=== PATIENT | male | born 1970 | race Caucasian/White ===

== ENCOUNTER 2024-05-22 07:54 | Outpatient (RCR) | payer BC, SELFPAY | END 2024-06-16 09:00 | disposition home or self-care (01) | LOC: PT 07:54 | PROVIDERS: Visit Provider Physician Assistant | DX: I21.9 Acute myocardial infarction, unspecified (principal); I50.20 Unspecified systolic (congestive) heart failure; Z95.1 Presence of aortocoronary bypass graft ==

== ENCOUNTER 2025-06-04 14:56 | Outpatient (CLI) | payer OTHER, SELFPAY ==
--- OUTSIDE RECORDS SUMMARY | 2025-06-04 14:58 | XMS_ITS ---
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
--- OUTSIDE RECORDS SUMMARY | 2025-06-04 14:59 | XMS_ITS | Data Portability ---
Author Organization [facility] Address [address] [place] [address] Assessment Encounter Date Assessment Date Assessment LastModified by Organization Details LastModified Time 04/26/2025 04/26/2025 The patient was advised to continue a healthy diet and exercise regularly. Labs will be sent to evaluate blood count, renal function lipids and vitamin D. Not available 04/26/2025 10:15:08 Plan of Treatment Reminders Order Date Submit Date Provider Last Modified By Organization Details Last Modified Time Details Appointments Follow Up 2024 03:20P M Lashaun Stokes APRN Not available Not available Not available Lab PSA, serum or plasma 2024 025 [facility], [address], [address], [place], [address], 04/27/2025 08:19:36 vitamin D, 25-hydrox y, total, serum 2024 025 [facility], [address], [address], [place], [address], 04/27/2025 08:19:38 CMP, serum or plasma 2024 025 [facility], [address], [address], [place], [address], 04/27/2025 08:19:34 HbA1c (hemoglob in A1c), blood 2024 025 [facility], [address], [address], [place], [address], 04/27/2025 08:19:37 TSH + free T4, serum 2024 025 ABEL Scott, [address], [address], [place], [address], 04/27/2025 08:19:33 cobalamin and folate panel, serum 2024 025 ABELMARGARET Scott, [address], [address], [place], [address], 04/27/2025 08:19:36 CBC w/ auto diff 2024 025 ABELMARGARET Scott, [address], [address], [place], [address], 04/27/2025 08:19:33 lipid panel, serum 2024 025 ABEL Scott, [address], [address], [place], [address], 04/27/2025 08:19:35 noninvasi ve colorecta l cancer DNA + occult blood screening , QL, stool 2024 025 [email or web address] (Cologuard Orders Only), [address], [address], [place], [address], 05/17/2025 07:14:50 vitamin D, 25-hydrox y, total, serum 2024 025 [facility], [address], [address], [place], [address], 01/12/2025 08:26:20 HbA1c (hemoglob in A1c), blood 2024 025 [facility], [address], [address], [place], [address], 01/12/2025 08:26:19 CMP, serum or plasma 2024 025 [facility], [address], [address], [place], [address], 01/12/2025 08:26:17 lipid panel, serum 2024 025 AB[facility], [address], [address], [place], [address], 01/12/2025 08:26:17 CBC w/ auto diff 2024 025 [facility], [address], [address], [place], [address], 01/12/2025 08:26:16 TSH + free T4, serum 2024 025 [place] [facility], [address], [address], [place], [address], 01/12/2025 08:26:15 iron + total iron-bind ing capacity (TIBC), serum 2024 025 [place] [facility], [address], [address], [place], [address], 01/12/2025 08:26:18 ferritin, serum or plasma 2024 025 [place] [facility], [address], [address], [place], [address], 01/12/2025 08:26:21 vitamin D, 25-hydrox y, total, serum 2023 024 [email or web address] [facility]( Lab), [address] [place] [address] [place], [address], 11/22/2024 09:16:36 HbA1c (hemoglob in A1c), blood 2023 024 [email or web address] [facility]( Lab), [address] [place] [address] [place], [address], 11/22/2024 09:15:39 CMP, serum or plasma 2023 024 [email or web address] [facility]( Lab), [address] [place] [address] Tatiana Hilliard, [place], [address], 11/22/2024 09:15:55 iron + total iron-bind ing capacity (TIBC), serum 2023 024 [email or web address] [facility]( [facility]), [address] [place] [address] Tatiana Hilliard, [place], [address], 11/22/2024 09:16:06 ferritin, serum or plasma 2023 024 [email or web address] [facility]( Lab), [address] [place] [address] Tatiana Hilliard, [place], [address], 11/22/2024 09:16:20 CBC w/ auto diff 2023 024 [facility]( Lab), [address] [place] [address] Tatinaa Hilliard, [place], [address], 10/02/2024 02:52:21 vitamin B12 + folate, serum or blood 2023 024 [email or web address] [facility]( Lab), [address] [place] [address] Tatiana Hilliard, [place], [address], 11/22/2024 09:16:28 HbA1c (hemoglob in A1c), blood 2023 024 [facility], [address], [address], [place], [address], 05/20/2024 08:36:28 iron + total iron-bind ing capacity (TIBC), serum 2023 024 [facility], [address], [address], [place], [address], 05/20/2024 08:36:26 ferritin, serum or plasma 2023 024 [facility], [address], [address], [place], [address], 05/20/2024 08:36:28 vitamin B12 + folate, serum or blood 2023 024 [facility], [address], [address], [place], [address], 05/20/2024 08:36:27 retic count, blood 2023 024 [facility], [address], [address], [place], [address], 05/20/2024 08:36:29 CBC w/ auto diff 2023 024 [facility], [address], [address], [place], [address], 05/20/2024 08:36:25 Referral rheumatol ogist referral 2023 024 [email or web address] [facility], [address] [place] [address] Pino Escalante, [address], [place], [address], 06/19/2024 16:50:37 Procedures None recorded. Surgeries None recorded. Imaging None recorded. Medication Orders cholecalc iferol (vitamin D3) 1,250 mcg (50,000 unit) capsule 2023 [email or web address], [address], 05/23/2025 18:03:05 FeroSul 325 mg (65 mg iron) tablet [address], [address], 05/19/2024 15:11:20 Patient TargetsNo targets recorded. Patient Instructions Encounter Date Encounter Id Patient Instructions Last Modified By Organization Details Last Modified Time 05/19/2024 [id number] learning about healthy weight alabenson Not available 05/19/2024 14:57:23 body mass index: care instructions Not available 05/19/2024 14:57:23 09/15/2024 [id number] learning about healthy weight Not available 09/15/2024 16:19:36 body mass index: care instructions Not available 09/15/2024 16:19:36 04/26/2025 [id number] [facility]'s Guide to Preventive Health Care Not available 04/26/2025 10:12:13 eating healthy foods: care instructions Not available 04/26/2025 10:12:13 learning about healthy weight Not available 04/26/2025 10:20:42 body mass index: care instructions Not available 04/26/2025 10:20:42 walking for exercise: care instructions Not available 04/26/2025 10:12:13 Reason for Referral Psychotherapist Referral for Rheumatoid factor detected Referring Physician: Lashaun Stokes, Family Medicine, Encounter Date: 05/19/2024 Results Created Date Observation Date Name Description Value Unit Range Abnormal Flag Note LastModifiedBy Organization Detail LastModifiedTime 05/12/20 24 05/13/2024 TSH+F REE T4 TSH 1.450 uIU/m L 0.450- 4.500 Not Available [facility] ([facility]) [address] [place], [address], 05/15/2024 13:08:28 05/12/20 24 05/13/2024 TSH+F REE T4 T4,free(dire ct) 1.14 NG/dL 0.82-1 .77 Not Available [facility] ([facility]) [address] [place], [address], 05/15/2024 13:08:28 05/12/20 24 05/13/2024 CBC WITH DIFFE RENTI AL/PL ATELE T WBC 7.2 x10e3 /uL 3.4-10 .8 Not Available [facility] ([facility]) [address] [place], [address], 05/15/2024 13:08:29 05/12/20 24 05/13/2024 CBC WITH DIFFE RENTI AL/PL ATELE T RBC 4.59 x10e6 /uL 4.14-5 .80 Not Available [facility] ([facility]) [address] [place], [address], 05/15/2024 13:08:29 05/12/20 24 05/13/2024 CBC WITH DIFFE RENTI AL/PL ATELE T hemoglobin 10.6 g/dL 13.0-1 7.7 below low normal Not Available [facility] ([facility]) [address] [place], [address], 05/15/2024 13:08:29 05/12/20 24 05/13/2024 CBC WITH DIFFE RENTI AL/PL ATELE T hematocrit 34.8 % 37.5-5 1.0 below low normal Not Available [facility] ([facility]) [address] [place], [address], 05/15/2024 13:08:29 05/12/20 24 05/13/2024 CBC WITH DIFFE RENTI AL/PL ATELE T MCV 76 fL 79-97 below low normal Not Available [facility] ([facility]) [address] [place], [address], 05/15/2024 13:08:29 05/12/20 24 05/13/2024 CBC WITH DIFFE RENTI AL/PL ATELE T MCH 23.1 pg 26.6-3 3.0 below low normal Not Available [facility] ([facility]) [address] [place], [address], 05/15/2024 13:08:29 05/12/20 24 05/13/2024 CBC WITH DIFFE RENTI AL/PL ATELE T MCHC 30.5 g/dL 31.5-3 5.7 below low normal Not Available [facility] ([facility]) [address] [place], [address], 05/15/2024 13:08:29 05/12/20 24 05/13/2024 CBC WITH DIFFE RENTI AL/PL ATELE T RDW 15.7 % 11.6-1 5.4 above high normal Not Available [facility] ([facility]) [address] [facility], [place], [address], 05/15/2024 13:08:29 05/12/20 24 05/13/2024 CBC WITH DIFFE RENTI AL/PL ATELE T platelets 273 x10e3 /uL 150-45 0 Not Available [facility] ([facility]) [address] [facility], [place], [address], 05/15/2024 13:08:29 05/12/20 24 05/13/2024 CBC WITH DIFFE RENTI AL/PL ATELE T neutrophils 73 % not estab. Not Available [facility] ([facility]) [address] [facility], [place], [address], 05/15/2024 13:08:29 05/12/20 24 05/13/2024 CBC WITH DIFFE RENTI AL/PL ATELE T lymphs 10 % not estab. Not Available [facility] ([facility]) [address] [facility], [place], [address], 05/15/2024 13:08:29 05/12/20 24 05/13/2024 CBC WITH DIFFE RENTI AL/PL ATELE T monocytes 10 % not estab. Not Available [facility] ([facility]) [address] [facility], [place], [address], 05/15/2024 13:08:29 05/12/20 24 05/13/2024 CBC WITH DIFFE RENTI AL/PL ATELE T eos 5 % not estab. Not Available [facility] ([facility]) [address] [facility], [place], [address], 05/15/2024 13:08:29 05/12/20 24 05/13/2024 CBC WITH DIFFE RENTI AL/PL ATELE T basos 1 % not estab. Not Available [facility] ([facility]) [address] [place], [address], 05/15/2024 13:08:29 05/12/20 24 05/13/2024 CBC WITH DIFFE RENTI AL/PL ATELE T immature cells CHART READER Not Available [facility] ([facility]) [address] [place], [address], 05/15/2024 13:08:29 05/12/20 24 05/13/2024 CBC WITH DIFFE RENTI AL/PL ATELE T neutrophils (absolute) 5.3 x10e3 /uL 1.4-7. 0 Not Available [facility] ([facility]) [address] [place], [address], 05/15/2024 13:08:29 05/12/20 24 05/13/2024 CBC WITH DIFFE RENTI AL/PL ATELE T lymphs (absolute) 0.7 x10e3 /uL 0.7-3. 1 Not Available [facility] ([facility]) [address] [place], [address], 05/15/2024 13:08:29 05/12/20 24 05/13/2024 CBC WITH DIFFE RENTI AL/PL ATELE T monocytes(ab solute) 0.7 x10e3 /uL 0.1-0. 9 Not Available [facility] ([facility]) [address] [place], [address], 05/15/2024 13:08:29 05/12/20 24 05/13/2024 CBC WITH DIFFE RENTI AL/PL ATELE T eos (absolute) 0.4 x10e3 /uL 0.0-0. 4 Not Available [facility] ([facility]) [address] [place], [address], 05/15/2024 13:08:29 05/12/20 24 05/13/2024 CBC WITH DIFFE RENTI AL/PL ATELE T baso (absolute) 0.1 x10e3 /uL 0.0-0. 2 Not Available [facility] ([facility]) [address] [facility], [place], [address], 05/15/2024 13:08:29 05/12/20 24 05/13/2024 CBC WITH DIFFE RENTI AL/PL ATELE T immature granulocytes 1 % not estab. Not Available [facility] ([facility]) [address] [facility], [place], [address], 05/15/2024 13:08:29 05/12/20 24 05/13/2024 CBC WITH DIFFE RENTI AL/PL ATELE T immature grans (abs) 0.1 x10e3 /uL 0.0-0. 1 Not Available [facility] ([facility]) [address] [facility], [place], [address], 05/15/2024 13:08:29 05/12/20 24 05/13/2024 CBC WITH DIFFE RENTI AL/PL ATELE T NRBC CHART READER Not Available [facility] ([facility]) [address] [facility], [place], [address], 05/15/2024 13:08:29 05/12/20 24 05/13/2024 CBC WITH DIFFE RENTI AL/PL ATELE T hematology comments: CHART READER Not Available [facility] ([facility]) [address] [facility], [place], [address], 05/15/2024 13:08:29 05/12/20 24 05/13/2024 COMP. METAB OLIC PANEL (14) glucose 111 mg/dL 70-99 above high normal Not Available [facility] ([facility]) [address] [facility], [place], [address], 05/15/2024 13:08:30 05/12/20 24 05/13/2024 COMP. METAB OLIC PANEL (14) BUN 23 mg/dL 6-24 Not Available [facility] ([facility]) [address] [facility] [place], [address], 05/15/2024 13:08:30 05/12/20 24 05/13/2024 COMP. METAB OLIC PANEL (14) creatinine 1.02 mg/dL 0.76-1 .27 Not Available [facility] ([facility]) [address] [facility] [place], [address], 05/15/2024 13:08:30 05/12/20 24 05/13/2024 COMP. METAB OLIC PANEL (14) eGFR 87 mL/mi n/1.7 3 >59 Not Available [facility] ([facility]) [address] [facility], [place], [address], 05/15/2024 13:08:30 05/12/20 24 05/13/2024 COMP. METAB OLIC PANEL (14) BUN/creatini ne ratio 23 9-20 above high normal Not Available [facility] ([facility]) [address] [facility] [place], [address], 05/15/2024 13:08:30 05/12/20 24 05/13/2024 COMP. METAB OLIC PANEL (14) sodium 137 mmol/ L 134-14 4 Not Available [facility] ([facility]) [address] [facility] [place], [address], 05/15/2024 13:08:30 05/12/20 24 05/13/2024 COMP. METAB OLIC PANEL (14) potassium 4.3 mmol/ L 3.5-5. 2 Not Available [facility] ([facility]) [address] [facility] [place], [address], 05/15/2024 13:08:30 05/12/20 24 05/13/2024 COMP. METAB OLIC PANEL (14) chloride 102 mmol/ L 96-106 Not Available [facility] ([facility]) [address] [facility], [place], [address], 05/15/2024 13:08:30 05/12/20 24 05/13/2024 COMP. METAB OLIC PANEL (14) carbon dioxide, total 21 mmol/ L 20-29 Not Available [facility] ([facility]) [address] [facility], [place], [address], 05/15/2024 13:08:30 05/12/20 24 05/13/2024 COMP. METAB OLIC PANEL (14) calcium 9.5 mg/dL 8.7-10 .2 Not Available [facility] ([facility]) [address] [facility] [place] [facility] [place], [address], 05/15/2024 13:08:30 05/12/20 24 05/13/2024 COMP. METAB OLIC PANEL (14) protein, total 7.0 g/dL 6.0-8. 5 Not Available [facility] ([facility]) [address] [facility], [place], [address], 05/15/2024 13:08:30 05/12/20 24 05/13/2024 COMP. METAB OLIC PANEL (14) albumin 3.9 g/dL 3.8-4. 9 Not Available [facility] ([facility]) [address] [facility] [place], [address], 05/15/2024 13:08:30 05/12/20 24 05/13/2024 COMP. METAB OLIC PANEL (14) globulin, total 3.1 g/dL 1.5-4. 5 Not Available [facility] ([facility]) [address] [facility] [place], [address], 05/15/2024 13:08:30 05/12/20 24 05/13/2024 COMP. METAB OLIC PANEL (14) bilirubin, total <0.2 mg/dL 0.0-1. 2 Not Available [facility] ([facility]) [address] [place], [address], 05/15/2024 13:08:30 05/12/20 24 05/13/2024 COMP. METAB OLIC PANEL (14) alkaline phosphatase 153 IU/L 44-121 above high normal Not Available [facility] ([facility]) [address] [facility], [place], [address], 05/15/2024 13:08:30 05/12/20 24 05/13/2024 COMP. METAB OLIC PANEL (14) AST (SGOT) 20 IU/L 0-40 Not Available [facility] ([facility]) [address] [facility] [place], [address], 05/15/2024 13:08:30 05/12/20 24 05/13/2024 COMP. METAB OLIC PANEL (14) ALT (SGPT) 24 IU/L 0-44 Not Available [facility] ([facility]) [address] [place], [address], 05/15/2024 13:08:30 05/12/20 24 05/13/2024 LIPID PANEL cholesterol, total 121 mg/dL 100-19 9 Not Available [facility] ([facility]) [address] [place], [address], 05/15/2024 13:08:30 05/12/20 24 05/13/2024 LIPID PANEL triglyceride s 137 mg/dL 0-149 Not Available [facility] ([facility]) [address] [place], [address], 05/15/2024 13:08:30 05/12/20 24 05/13/2024 LIPID PANEL HDL cholesterol 34 mg/dL >39 below low normal Not Available [facility] ([facility]) [address] [place], [address], 05/15/2024 13:08:30 05/12/20 24 05/13/2024 LIPID PANEL VLDL cholesterol radha 24 mg/dL 5-40 Not Available [facility] ([facility]) [address] [facility], [place], [address], 05/15/2024 13:08:30 05/12/20 24 05/13/2024 LIPID PANEL LDL chol calc ([facility]) 63 mg/dL 0-99 Not Available [facility] ([facility]) [address] [facility], [place], [address], 05/15/2024 13:08:30 05/12/20 24 05/13/2024 LIPID PANEL LDL calc comment: CHART READER Not Available [facility] ([facility]) [address] [facility], [place], [address], 05/15/2024 13:08:30 05/12/20 24 05/13/2024 RHEUM ATOID FACTO R (RF) rheumatoid factor (rf) 275.2 IU/mL <14.0 above high normal Resul ts confi rmed on dilut ion. Not Available [facility] ([facility]) [address] [facility], [place], [address], 05/15/2024 13:08:31 05/12/20 24 05/13/2024 VITAM IN D, 25-HY DROXY vitamin D, 25-hydroxy 29.5 NG/mL 30.0-1 00.0 below low normal Vitam in D defic iency has been defin ed by the Insti tute of Medic ine and an Endoc rine Socie ty pract ice guide line as a level of serum 25-OH vitam in D less than 20 ng/mL (1,2) . The Endoc rine Socie ty went on to furth er defin e vitam in D insuf ficie ncy as a level betwe en 21 and 29 ng/mL (2). 1. IOM (Inst itute of Medic ine). 2010. Dieta ry refer ence intak es for calci um and D. Jose gillette [place]: [facility] . 2. Theodora dimas [place], Sania zimmerman [place], [place] off-F errar i FARAH, et al. Evalu ation , treat ment, and preve ntion of vitam in D defic iency : an Endoc rine Socie ty clini radha pract ice guide line. JCEM. 2010; 96(7) :1911 -30. Not Available [facility] ([facility]) [address] [facility], [place], [address], 05/15/2024 13:08:32 05/12/20 24 05/15/2024 ANTIN UCLEA R AB MULTI PLEX RFX 9 YOSELIN direct Negati ve negati ve Not Available [facility] ([facility]) [address] [facility], [place], [address], 05/15/2024 13:08:33 05/12/20 24 05/13/2024 SEDIM ENTAT ION RATE- WESTE RGREN sedimentatio n rate-westerg codey 53 mm/HR 0-30 above high normal Not Available [facility] ([facility]) [address] [facility], [place], [address], 05/15/2024 13:08:33 05/12/20 24 05/13/2024 C-MAT CTIVE PROTE IN, QUANT C-reactive protein, quant 40 mg/L 0-10 above high normal Not Available [facility] ([facility]) [address] [facility], [place], [address], 05/15/2024 13:08:34 05/19/20 24 05/20/2024 CBC WITH DIFFE RENTI AL/PL ATELE T WBC 11.0 x10e3 /uL 3.4-10 .8 above high normal Not Available [facility] ([facility]) [address] [facility] [place], [address], 05/20/2024 08:36:25 05/19/20 24 05/20/2024 CBC WITH DIFFE RENTI AL/PL ATELE T RBC 5.33 x10e6 /uL 4.14-5 .80 Not Available [facility] ([facility]) [address] [place], [address], 05/20/2024 08:36:25 05/19/20 24 05/20/2024 CBC WITH DIFFE RENTI AL/PL ATELE T hemoglobin 12.4 g/dL 13.0-1 7.7 below low normal Not Available [facility] ([facility]) [address] [place], [address], 05/20/2024 08:36:25 05/19/20 24 05/20/2024 CBC WITH DIFFE RENTI AL/PL ATELE T hematocrit 41.1 % 37.5-5 1.0 Not Available [facility] ([facility]) [address] [place], [address], 05/20/2024 08:36:25 05/19/20 24 05/20/2024 CBC WITH DIFFE RENTI AL/PL ATELE T MCV 77 fL 79-97 below low normal Not Available [facility] ([facility]) [address] [place], [address], 05/20/2024 08:36:25 05/19/20 24 05/20/2024 CBC WITH DIFFE RENTI AL/PL ATELE T MCH 23.3 pg 26.6-3 3.0 below low normal Not Available [facility] ([facility]) [address] [place], [address], 05/20/2024 08:36:25 05/19/20 24 05/20/2024 CBC WITH DIFFE RENTI AL/PL ATELE T MCHC 30.2 g/dL 31.5-3 5.7 below low normal Not Available [facility] ([facility]) [address] [place], [address], 05/20/2024 08:36:25 05/19/20 24 05/20/2024 CBC WITH DIFFE RENTI AL/PL ATELE T RDW 16.2 % 11.6-1 5.4 above high normal Not Available [facility] ([facility]) [address] [facility], [place], [address], 05/20/2024 08:36:25 05/19/20 24 05/20/2024 CBC WITH DIFFE RENTI AL/PL ATELE T platelets 300 x10e3 /uL 150-45 0 Not Available [facility] ([facility]) [address] [facility], [place], [address], 05/20/2024 08:36:25 05/19/20 24 05/20/2024 CBC WITH DIFFE RENTI AL/PL ATELE T neutrophils 79 % not estab. Not Available [facility] ([facility]) [address] [facility], [place], [address], 05/20/2024 08:36:25 05/19/20 24 05/20/2024 CBC WITH DIFFE RENTI AL/PL ATELE T lymphs 9 % not estab. Not Available [facility] ([facility]) [address] [facility], [place], [address], 05/20/2024 08:36:25 05/19/20 24 05/20/2024 CBC WITH DIFFE RENTI AL/PL ATELE T monocytes 6 % not estab. Not Available [facility] ([facility]) [address] [facility], [place], [address], 05/20/2024 08:36:25 05/19/20 24 05/20/2024 CBC WITH DIFFE RENTI AL/PL ATELE T eos 4 % not estab. Not Available [facility] ([facility]) [address] [facility], [place], [address], 05/20/2024 08:36:25 05/19/20 24 05/20/2024 CBC WITH DIFFE RENTI AL/PL ATELE T basos 1 % not estab. Not Available [facility] ([facility]) [address] [facility], [place], [address], 05/20/2024 08:36:25 05/19/20 24 05/20/2024 CBC WITH DIFFE RENTI AL/PL ATELE T immature cells CHART READER Not Available [facility] ([facility]) [address] [place], [address], 05/20/2024 08:36:25 05/19/20 24 05/20/2024 CBC WITH DIFFE RENTI AL/PL ATELE T neutrophils (absolute) 8.7 x10e3 /uL 1.4-7. 0 above high normal Not Available [facility] ([facility]) [address] [place], [address], 05/20/2024 08:36:25 05/19/20 24 05/20/2024 CBC WITH DIFFE RENTI AL/PL ATELE T lymphs (absolute) 1.0 x10e3 /uL 0.7-3. 1 Not Available [facility] ([facility]) [address] [place], [address], 05/20/2024 08:36:25 05/19/20 24 05/20/2024 CBC WITH DIFFE RENTI AL/PL ATELE T monocytes(ab solute) 0.6 x10e3 /uL 0.1-0. 9 Not Available [facility] ([facility]) [address] [place], [address], 05/20/2024 08:36:25 05/19/20 24 05/20/2024 CBC WITH DIFFE RENTI AL/PL ATELE T eos (absolute) 0.4 x10e3 /uL 0.0-0. 4 Not Available [facility] ([facility]) [address] [place], [address], 05/20/2024 08:36:25 05/19/20 24 05/20/2024 CBC WITH DIFFE RENTI AL/PL ATELE T baso (absolute) 0.1 x10e3 /uL 0.0-0. 2 Not Available [facility] ([facility]) [address] [place], [address], 05/20/2024 08:36:25 05/19/20 24 05/20/2024 CBC WITH DIFFE RENTI AL/PL ATELE T immature granulocytes 1 % not estab. Not Available [facility] ([facility]) [address] [facility] [place], [address], 05/20/2024 08:36:25 05/19/20 24 05/20/2024 CBC WITH DIFFE RENTI AL/PL ATELE T immature grans (abs) 0.1 x10e3 /uL 0.0-0. 1 Not Available [facility] ([facility]) [address] [facility], [place], [address], 05/20/2024 08:36:25 05/19/20 24 05/20/2024 CBC WITH DIFFE RENTI AL/PL ATELE T NRBC CHART READER Not Available [facility] ([facility]) [address] [facility], [place], [address], 05/20/2024 08:36:25 05/19/20 24 05/20/2024 CBC WITH DIFFE RENTI AL/PL ATELE T hematology comments: CHART READER Not Available [facility] ([facility]) [address] [facility], [place], [address], 05/20/2024 08:36:25 05/19/20 24 05/20/2024 IRON AND TIBC iron bind.cap.(TI BC) 241 ug/dL 250-45 0 below low normal Not Available [facility] ([facility]) [address] [place], [address], 05/20/2024 08:36:26 05/19/20 24 05/20/2024 IRON AND TIBC UIBC 212 ug/dL 111-34 3 Not Available [facility] ([facility]) [address] [place], [address], 05/20/2024 08:36:26 05/19/20 24 05/20/2024 IRON AND TIBC iron 29 ug/dL 38-169 below low normal Not Available [facility] ([facility]) [address] [place], [address], 05/20/2024 08:36:26 05/19/20 24 05/20/2024 IRON AND TIBC iron saturation 12 % 15-55 below low normal Not Available [facility] ([facility]) [address] [place], [address], 05/20/2024 08:36:26 05/19/20 24 05/20/2024 VITAM IN B12 AND FOLAT E vitamin B12 501 pg/mL 232-12 45 Not Available [facility] ([facility]) [address] [place], [address], 05/20/2024 08:36:27 05/19/20 24 05/20/2024 VITAM IN B12 AND FOLAT E folate (folic acid), serum 4.9 NG/mL >3.0 A serum folat e jose ntrat ion of less than 3.1 ng/mL is consi dered to repre sent clini radha defic iency . Not Available [facility] ([facility]) [address] [place], [address], 05/20/2024 08:36:27 05/19/20 24 05/20/2024 HEMOG LOBIN A1C hemoglobin A1C 6.1 % 4.8-5. 6 above high normal Predi abete s: 5.7 - 6.4 Diabe kenyatta: >6.4 Glyce ranjith contr ol for adult s with diabe kenyatta: <7.0 Not Available [facility] ([facility]) [address] [place], [address], 05/20/2024 08:36:27 05/19/20 24 05/20/2024 CHELA TIN ferritin 377 NG/mL 30-400 Not Available [facility] ([facility]) [address] [place], [address], 05/20/2024 08:36:28 05/19/20 24 05/20/2024 RETIC ULOCY TE COUNT reticulocyte count 1.2 % 0.6-2. 6 Not Available [facility] ([facility]) [address] [facility], [place], [address], 05/20/2024 08:36:29 06/28/2006/29/2024 BASIC METAB OLIC PANEL (8) glucose 121 mg/dL 70-99 above high normal Not Available [facility] ([facility]) [address] [facility] [place], [address], 06/29/2024 04:11:04 06/28/20 24 06/29/2024 BASIC METAB OLIC PANEL (8) BUN 16 mg/dL 6-24 normal Not Available [facility] ([facility]) [address] [place], [address], 06/29/2024 04:11:04 06/28/20 24 06/29/2024 BASIC METAB OLIC PANEL (8) creatinine 1.31 mg/dL 0.76-1 .27 above high normal Not Available [facility] ([facility]) [address] [place], [address], 06/29/2024 04:11:04 06/28/2006/29/2024 BASIC METAB OLIC PANEL (8) eGFR 65 mL/mi n/1.7 3 >59 normal Not Available [facility] ([facility]) [address] [place], [address], 06/29/2024 04:11:04 06/28/2006/29/2024 BASIC METAB OLIC PANEL (8) BUN/creatini ne ratio 12 9-20 normal Not Available [facility] ([facility]) [address] [place], [address], 06/29/2024 04:11:04 06/28/20 24 06/29/2024 BASIC METAB OLIC PANEL (8) sodium 140 mmol/ L 134-14 4 normal Not Available [facility] ([facility]) [address] [place], [address], 06/29/2024 04:11:04 06/28/20 24 06/29/2024 BASIC METAB OLIC PANEL (8) potassium 4.1 mmol/ L 3.5-5. 2 normal Not Available [facility] ([facility]) [address] [place], [address], 06/29/2024 04:11:04 06/28/20 24 06/29/2024 BASIC METAB OLIC PANEL (8) chloride 106 mmol/ L 96-106 normal Not Available [facility] ([facility]) [address] [place], [address], 06/29/2024 04:11:04 06/28/20 24 06/29/2024 BASIC METAB OLIC PANEL (8) carbon dioxide, total 21 mmol/ L 20-29 normal Not Available [facility] ([facility]) [address] [place], [address], 06/29/2024 04:11:04 06/28/20 24 06/29/2024 BASIC METAB OLIC PANEL (8) calcium 9.3 mg/dL 8.7-10 .2 normal Not Available [facility] ([facility]) [address] [place], [address], 06/29/2024 04:11:04 01/12/20 25 01/12/2025 TSH+F REE T4 TSH 1.760 uIU/m L 0.450- 4.500 normal Not Available [facility] ([facility]) [address] [place], [address], 01/12/2025 08:26:15 01/12/20 25 01/12/2025 TSH+F REE T4 T4,free(dire ct) 1.11 NG/dL 0.82-1 .77 normal Not Available [facility] ([facility]) [address] [place], [address], 01/12/2025 08:26:15 01/12/20 25 01/12/2025 CBC WITH DIFFE RENTI AL/PL ATELE T WBC 7.3 x10e3 /uL 3.4-10 .8 normal Not Available [facility] ([facility]) [address] [place], [address], 01/12/2025 08:26:16 01/12/20 25 01/12/2025 CBC WITH DIFFE RENTI AL/PL ATELE T RBC 4.52 x10e6 /uL 4.14-5 .80 normal Not Available [facility] ([facility]) [address] [place], [address], 01/12/2025 08:26:16 01/12/20 25 01/12/2025 CBC WITH DIFFE RENTI AL/PL ATELE T hemoglobin 12.4 g/dL 13.0-1 7.7 below low normal Not Available [facility] ([facility]) [address] [place], [address], 01/12/2025 08:26:16 01/12/20 25 01/12/2025 CBC WITH DIFFE RENTI AL/PL ATELE T hematocrit 38.9 % 37.5-5 1.0 normal Not Available [facility] ([facility]) [address] [place], [address], 01/12/2025 08:26:16 01/12/20 25 01/12/2025 CBC WITH DIFFE RENTI AL/PL ATELE T MCV 86 fL 79-97 normal Not Available [facility] ([facility]) [address] [place], [address], 01/12/2025 08:26:16 01/12/20 25 01/12/2025 CBC WITH DIFFE RENTI AL/PL ATELE T MCH 27.4 pg 26.6-3 3.0 normal Not Available [facility] ([facility]) [address] [facility], [place], [address], 01/12/2025 08:26:16 01/12/20 25 01/12/2025 CBC WITH DIFFE RENTI AL/PL ATELE T MCHC 31.9 g/dL 31.5-3 5.7 normal Not Available [facility] ([facility]) [address] [facility], [place], [address], 01/12/2025 08:26:16 01/12/20 25 01/12/2025 CBC WITH DIFFE RENTI AL/PL ATELE T RDW 12.4 % 11.6-1 5.4 Not Available [facility] ([facility]) [address] [facility], [place], [address], 01/12/2025 08:26:16 01/12/20 25 01/12/2025 CBC WITH DIFFE RENTI AL/PL ATELE T platelets 214 x10e3 /uL 150-45 0 normal Not Available [facility] ([facility]) [address] [place], [address], 01/12/2025 08:26:16 01/12/20 25 01/12/2025 CBC WITH DIFFE RENTI AL/PL ATELE T neutrophils 79 % not estab. normal Not Available [facility] ([facility]) [address] [facility], [place], [address], 01/12/2025 08:26:16 01/12/20 25 01/12/2025 CBC WITH DIFFE RENTI AL/PL ATELE T lymphs 11 % not estab. normal Not Available [facility] ([facility]) [address] [place], [address], 01/12/2025 08:26:16 01/12/20 25 01/12/2025 CBC WITH DIFFE RENTI AL/PL ATELE T monocytes 8 % not estab. normal Not Available [facility] ([facility]) [address] [place], [address], 01/12/2025 08:26:16 01/12/20 25 01/12/2025 CBC WITH DIFFE RENTI AL/PL ATELE T eos 2 % not estab. normal Not Available [facility] ([facility]) [address] [facility], [place], [address], 01/12/2025 08:26:16 01/12/20 25 01/12/2025 CBC WITH DIFFE RENTI AL/PL ATELE T basos 0 % not estab. normal Not Available [facility] ([facility]) [address] [facility], [place], [address], 01/12/2025 08:26:16 01/12/20 25 01/12/2025 CBC WITH DIFFE RENTI AL/PL ATELE T immature cells CHART READER Not Available [facility] ([facility]) [address] [place], [address], 01/12/2025 08:26:16 01/12/20 25 01/12/2025 CBC WITH DIFFE RENTI AL/PL ATELE T neutrophils (absolute) 5.8 x10e3 /uL 1.4-7. 0 normal Not Available [facility] ([facility]) [address] [place], [address], 01/12/2025 08:26:16 01/12/20 25 01/12/2025 CBC WITH DIFFE RENTI AL/PL ATELE T lymphs (absolute) 0.8 x10e3 /uL 0.7-3. 1 normal Not Available [facility] ([facility]) [address] [place], [address], 01/12/2025 08:26:16 01/12/20 25 01/12/2025 CBC WITH DIFFE RENTI AL/PL ATELE T monocytes(ab solute) 0.6 x10e3 /uL 0.1-0. 9 normal Not Available [facility] ([facility]) [address] [facility], [place], [address], 01/12/2025 08:26:16 01/12/20 25 01/12/2025 CBC WITH DIFFE RENTI AL/PL ATELE T eos (absolute) 0.1 x10e3 /uL 0.0-0. 4 normal Not Available [facility] ([facility]) [address] [facility], [place], [address], 01/12/2025 08:26:16 01/12/20 25 01/12/2025 CBC WITH DIFFE RENTI AL/PL ATELE T baso (absolute) 0.0 x10e3 /uL 0.0-0. 2 normal Not Available [facility] ([facility]) [address] [facility], [place], [address], 01/12/2025 08:26:16 01/12/20 25 01/12/2025 CBC WITH DIFFE RENTI AL/PL ATELE T immature granulocytes 0 % not estab. Not Available [facility] ([facility]) [address] [facility], [place], [address], 01/12/2025 08:26:16 01/12/20 25 01/12/2025 CBC WITH DIFFE RENTI AL/PL ATELE T immature grans (abs) 0.0 x10e3 /uL 0.0-0. 1 Not Available [facility] ([facility]) [address] [place], [address], 01/12/2025 08:26:16 01/12/20 25 01/12/2025 CBC WITH DIFFE RENTI AL/PL ATELE T NRBC CHART READER Not Available [facility] ([facility]) [address] [facility], [place], [address], 01/12/2025 08:26:16 01/12/20 25 01/12/2025 CBC WITH DIFFE RENTI AL/PL ATELE T hematology comments: CHART READER Not Available [facility] ([facility]) [address] [facility] [place], [address], 01/12/2025 08:26:16 01/12/20 25 01/12/2025 COMP. METAB OLIC PANEL (14) glucose 141 mg/dL 70-99 above high normal Not Available [facility] ([facility]) [address] [facility] [place], [address], 01/12/2025 08:26:16 01/12/20 25 01/12/2025 COMP. METAB OLIC PANEL (14) BUN 16 mg/dL 6-24 normal Not Available [facility] ([facility]) [address] [facility] [place], [address], 01/12/2025 08:26:16 01/12/20 25 01/12/2025 COMP. METAB OLIC PANEL (14) creatinine 1.04 mg/dL 0.76-1 .27 normal Not Available [facility] ([facility]) [address] [facility] [place], [address], 01/12/2025 08:26:16 01/12/20 25 01/12/2025 COMP. METAB OLIC PANEL (14) eGFR 85 mL/mi n/1.7 3 >59 normal Not Available [facility] ([facility]) [address] [facility] [place], [address], 01/12/2025 08:26:16 01/12/20 25 01/12/2025 COMP. METAB OLIC PANEL (14) BUN/creatini ne ratio 15 9-20 normal Not Available [facility] ([facility]) [address] [facility] [place], [address], 01/12/2025 08:26:16 01/12/20 25 01/12/2025 COMP. METAB OLIC PANEL (14) sodium 141 mmol/ L 134-14 4 normal Not Available [facility] ([facility]) [address] [facility] [place], [address], 01/12/2025 08:26:16 01/12/20 25 01/12/2025 COMP. METAB OLIC PANEL (14) potassium 3.8 mmol/ L 3.5-5. 2 normal Not Available [facility] ([facility]) [address] [facility] [place], [address], 01/12/2025 08:26:16 01/12/20 25 01/12/2025 COMP. METAB OLIC PANEL (14) chloride 105 mmol/ L 96-106 normal Not Available [facility] ([facility]) [address] [place], [address], 01/12/2025 08:26:16 01/12/20 25 01/12/2025 COMP. METAB OLIC PANEL (14) carbon dioxide, total 22 mmol/ L 20-29 normal Not Available [facility] ([facility]) [address] [facility] [place], [address], 01/12/2025 08:26:16 01/12/20 25 01/12/2025 COMP. METAB OLIC PANEL (14) calcium 9.3 mg/dL 8.7-10 .2 normal Not Available [facility] ([facility]) [address] [facility] [place], [address], 01/12/2025 08:26:16 01/12/20 25 01/12/2025 COMP. METAB OLIC PANEL (14) protein, total 6.8 g/dL 6.0-8. 5 normal Not Available [facility] ([facility]) [address] [facility] [place], [address], 01/12/2025 08:26:16 01/12/20 25 01/12/2025 COMP. METAB OLIC PANEL (14) albumin 4.4 g/dL 3.8-4. 9 normal Not Available [facility] ([facility]) [address] [facility] [place], [address], 01/12/2025 08:26:16 01/12/20 25 01/12/2025 COMP. METAB OLIC PANEL (14) globulin, total 2.4 g/dL 1.5-4. 5 Not Available [facility] ([facility]) [address] [place], [address], 01/12/2025 08:26:16 01/12/20 25 01/12/2025 COMP. METAB OLIC PANEL (14) bilirubin, total 0.3 mg/dL 0.0-1. 2 normal Not Available [facility] ([facility]) [address] [place], [address], 01/12/2025 08:26:16 01/12/20 25 01/12/2025 COMP. METAB OLIC PANEL (14) alkaline phosphatase 146 IU/L 44-121 above high normal Not Available [facility] ([facility]) [address] [place], [address], 01/12/2025 08:26:16 01/12/20 25 01/12/2025 COMP. METAB OLIC PANEL (14) AST (SGOT) 20 IU/L 0-40 normal Not Available [facility] ([facility]) [address] [place], [address], 01/12/2025 08:26:16 01/12/20 25 01/12/2025 COMP. METAB OLIC PANEL (14) ALT (SGPT) 18 IU/L 0-44 normal Not Available [facility] ([facility]) [address] [place], [address], 01/12/2025 08:26:16 01/12/20 25 01/12/2025 LIPID PANEL cholesterol, total 94 mg/dL 100-19 9 below low normal Not Available [facility] ([facility]) [address] [place], [address], 01/12/2025 08:26:17 01/12/20 25 01/12/2025 LIPID PANEL triglyceride s 156 mg/dL 0-149 above high normal Not Available [facility] ([facility]) [address] [place], [address], 01/12/2025 08:26:17 01/12/20 25 01/12/2025 LIPID PANEL HDL cholesterol 32 mg/dL >39 below low normal Not Available [facility] ([facility]) [address] [place], [address], 01/12/2025 08:26:17 01/12/20 25 01/12/2025 LIPID PANEL VLDL cholesterol radha 26 mg/dL 5-40 Not Available [facility] ([facility]) [address] [place], [address], 01/12/2025 08:26:17 01/12/20 25 01/12/2025 LIPID PANEL LDL chol calc ([facility]) 36 mg/dL 0-99 Not Available [facility] ([facility]) [address] [place], [address], 01/12/2025 08:26:17 01/12/20 25 01/12/2025 LIPID PANEL LDL calc comment: CHART READER Not Available [facility] ([facility]) [address] [place], [address], 01/12/2025 08:26:17 01/12/20 25 01/12/2025 IRON AND TIBC iron bind.cap.(TI BC) 210 ug/dL 250-45 0 below low normal Not Available [facility] ([facility]) [address] [place], [address], 01/12/2025 08:26:18 01/12/20 25 01/12/2025 IRON AND TIBC UIBC 164 ug/dL 111-34 3 normal Not Available [facility] ([facility]) [address] [place], [address], 01/12/2025 08:26:18 01/12/20 25 01/12/2025 IRON AND TIBC iron 46 ug/dL 38-169 normal Not Available [facility] ([facility]) [address] [facility], [place], [address], 01/12/2025 08:26:18 01/12/2001/12/2025 IRON AND TIBC iron saturation 22 % 15-55 normal Not Available [facility] ([facility]) [address] [facility], [place], [address], 01/12/2025 08:26:18 01/12/20 25 01/12/2025 HEMOG LOBIN A1C hemoglobin A1C 4.7 % 4.8-5. 6 below low normal Predi abete s: 5.7 - 6.4 Diabe kenyatta: >6.4 Glyce ranjith contr ol for adult s with diabe kenyatta: <7.0 Not Available [facility] ([facility]) [address] [facility], [place], [address], 01/12/2025 08:26:19 01/12/2001/12/2025 VITAM IN D, 25-HY DROXY vitamin D, 25-hydroxy 52.6 NG/mL 30.0-1 00.0 Vitam in D defic iency has been defin ed by the Insti tute of Medic ine and an Endoc rine Socie ty pract ice guide line as a level of serum 25-OH vitam in D less than 20 ng/mL (1,2) . The Endoc rine Socie ty went on to furth er defin e vitam in D insuf ficie ncy as a level betwe en 21 and 29 ng/mL (2). 1. IOM (Inst itute of Medic ine). 2010. Dieta ry refer ence intak es for calci um and D. Jose gillette [place]: The [facility] . 2. Theodora dimas MF, Sania zimmerman [place], [facility] FARAH, et al. Evalu ation , treat ment, and preve ntion of vitam in D defic iency : an Endoc rine Socie ty clini radha pract ice guide line. JCEM. 2010; 96(7) :1911 -30. Not Available [facility] ([facility]) [address] [facility] [place], [address], 01/12/2025 08:26:20 01/12/20 25 01/12/2025 CHELA TIN ferritin 411 NG/mL 30-400 above high normal Not Available [facility] ([facility]) [address] [facility] [place], [address], 01/12/2025 08:26:21 04/26/20 25 04/27/2025 TSH+F REE T4 TSH 2.280 uIU/m L 0.450- 4.500 normal Not Available [facility] ([facility]) [address] [facility] [place], [address], 04/27/2025 08:19:33 04/26/20 25 04/27/2025 TSH+F REE T4 T4,free(dire ct) 1.07 NG/dL 0.82-1 .77 normal Not Available [facility] ([facility]) [address] [place], [address], 04/27/2025 08:19:33 04/26/20 25 04/27/2025 CBC WITH DIFFE RENTI AL/PL ATELE T WBC 7.2 x10e3 /uL 3.4-10 .8 normal Not Available [facility] ([facility]) [address] [place], [address], 04/27/2025 08:19:33 04/26/20 25 04/27/2025 CBC WITH DIFFE RENTI AL/PL ATELE T RBC 5.03 x10e6 /uL 4.14-5 .80 normal Not Available [facility] ([facility]) [address] [place], [address], 04/27/2025 08:19:33 04/26/20 25 04/27/2025 CBC WITH DIFFE RENTI AL/PL ATELE T hemoglobin 13.1 g/dL 13.0-1 7.7 normal Not Available [facility] ([facility]) [address] [place], [address], 04/27/2025 08:19:33 04/26/20 25 04/27/2025 CBC WITH DIFFE RENTI AL/PL ATELE T hematocrit 44.8 % 37.5-5 1.0 normal Not Available [facility] ([facility]) [address] [facility], [place], [address], 04/27/2025 08:19:33 04/26/20 25 04/27/2025 CBC WITH DIFFE RENTI AL/PL ATELE T MCV 89 fL 79-97 normal Not Available [facility] ([facility]) [address] [place], [address], 04/27/2025 08:19:33 04/26/20 25 04/27/2025 CBC WITH DIFFE RENTI AL/PL ATELE T MCH 26.0 pg 26.6-3 3.0 below low normal Not Available [facility] ([facility]) [address] [place], [address], 04/27/2025 08:19:33 04/26/20 25 04/27/2025 CBC WITH DIFFE RENTI AL/PL ATELE T MCHC 29.2 g/dL 31.5-3 5.7 below low normal Not Available [facility] ([facility]) [address] [place], [address], 04/27/2025 08:19:33 04/26/20 25 04/27/2025 CBC WITH DIFFE RENTI AL/PL ATELE T RDW 13.6 % 11.6-1 5.4 Not Available [facility] ([facility]) [address] [place], [address], 04/27/2025 08:19:33 04/26/20 25 04/27/2025 CBC WITH DIFFE RENTI AL/PL ATELE T platelets 198 x10e3 /uL 150-45 0 normal Not Available [facility] ([facility]) [address] [facility], [place], [address], 04/27/2025 08:19:33 04/26/20 25 04/27/2025 CBC WITH DIFFE RENTI AL/PL ATELE T neutrophils 72 % not estab. normal Not Available [facility] ([facility]) [address] [facility], [place], [address], 04/27/2025 08:19:33 04/26/20 25 04/27/2025 CBC WITH DIFFE RENTI AL/PL ATELE T lymphs 14 % not estab. normal Not Available [facility] ([facility]) [address] [facility], [place], [address], 04/27/2025 08:19:33 04/26/20 25 04/27/2025 CBC WITH DIFFE RENTI AL/PL ATELE T monocytes 11 % not estab. normal Not Available [facility] ([facility]) [address] [facility], [place], [address], 04/27/2025 08:19:33 04/26/20 25 04/27/2025 CBC WITH DIFFE RENTI AL/PL ATELE T eos 2 % not estab. normal Not Available [facility] ([facility]) [address] [facility], [place], [address], 04/27/2025 08:19:33 04/26/20 25 04/27/2025 CBC WITH DIFFE RENTI AL/PL ATELE T basos 0 % not estab. normal Not Available [facility] ([facility]) [address] [facility], [place], [address], 04/27/2025 08:19:33 04/26/20 25 04/27/2025 CBC WITH DIFFE RENTI AL/PL ATELE T immature cells CHART READER Not Available [facility] ([facility]) [address] [place], [address], 04/27/2025 08:19:33 04/26/20 25 04/27/2025 CBC WITH DIFFE RENTI AL/PL ATELE T neutrophils (absolute) 5.2 x10e3 /uL 1.4-7. 0 normal Not Available [facility] ([facility]) [address] [place], [address], 04/27/2025 08:19:33 04/26/20 25 04/27/2025 CBC WITH DIFFE RENTI AL/PL ATELE T lymphs (absolute) 1.0 x10e3 /uL 0.7-3. 1 normal Not Available [facility] ([facility]) [address] [place], [address], 04/27/2025 08:19:33 04/26/20 25 04/27/2025 CBC WITH DIFFE RENTI AL/PL ATELE T monocytes(ab solute) 0.8 x10e3 /uL 0.1-0. 9 normal Not Available [facility] ([facility]) [address] [place], [address], 04/27/2025 08:19:33 04/26/20 25 04/27/2025 CBC WITH DIFFE RENTI AL/PL ATELE T eos (absolute) 0.1 x10e3 /uL 0.0-0. 4 normal Not Available [facility] ([facility]) [address] [place], [address], 04/27/2025 08:19:33 04/26/20 25 04/27/2025 CBC WITH DIFFE RENTI AL/PL ATELE T baso (absolute) 0.0 x10e3 /uL 0.0-0. 2 normal Not Available [facility] ([facility]) [address] [place], [address], 04/27/2025 08:19:33 04/26/20 25 04/27/2025 CBC WITH DIFFE RENTI AL/PL ATELE T immature granulocytes 1 % not estab. Not Available [facility] ([facility]) [address] [facility], [place], [address], 04/27/2025 08:19:33 04/26/20 25 04/27/2025 CBC WITH DIFFE RENTI AL/PL ATELE T immature grans (abs) 0.0 x10e3 /uL 0.0-0. 1 Not Available [facility] ([facility]) [address] [facility], [place], [address], 04/27/2025 08:19:33 04/26/20 25 04/27/2025 CBC WITH DIFFE RENTI AL/PL ATELE T NRBC CHART READER Not Available [facility] ([facility]) [address] [facility], [place], [address], 04/27/2025 08:19:33 04/26/20 25 04/27/2025 CBC WITH DIFFE RENTI AL/PL ATELE T hematology comments: CHART READER Not Available [facility] ([facility]) [address] [facility], [place], [address], 04/27/2025 08:19:33 04/26/20 25 04/27/2025 COMP. METAB OLIC PANEL (14) glucose 80 mg/dL 70-99 normal Not Available [facility] ([facility]) [address] [facility], [place], [address], 04/27/2025 08:19:34 04/26/20 25 04/27/2025 COMP. METAB OLIC PANEL (14) BUN 14 mg/dL 6-24 normal Not Available [facility] ([facility]) [address] [facility], [place], [address], 04/27/2025 08:19:34 04/26/20 25 04/27/2025 COMP. METAB OLIC PANEL (14) creatinine 1.00 mg/dL 0.76-1 .27 normal Not Available [facility] ([facility]) [address] [facility], [place], [address], 04/27/2025 08:19:34 04/26/20 25 04/27/2025 COMP. METAB OLIC PANEL (14) eGFR 89 mL/mi n/1.7 3 >59 normal Not Available [facility] ([facility]) [address] [facility], [place], [address], 04/27/2025 08:19:34 04/26/20 25 04/27/2025 COMP. METAB OLIC PANEL (14) BUN/creatini ne ratio 14 9-20 normal Not Available [facility] ([facility]) [address] [facility], [place], [address], 04/27/2025 08:19:34 04/26/20 25 04/27/2025 COMP. METAB OLIC PANEL (14) sodium 138 mmol/ L 134-14 4 normal Not Available [facility] ([facility]) [address] [facility], [place], [address], 04/27/2025 08:19:34 04/26/20 25 04/27/2025 COMP. METAB OLIC PANEL (14) potassium 5.0 mmol/ L 3.5-5. 2 normal Not Available [facility] ([facility]) [address], [place], [address], 04/27/2025 08:19:34 04/26/20 25 04/27/2025 COMP. METAB OLIC PANEL (14) chloride 104 mmol/ L 96-106 normal Not Available [facility] ([facility]) [address] [facility] [address], [place], [address], 04/27/2025 08:19:34 04/26/20 25 04/27/2025 COMP. METAB OLIC PANEL (14) carbon dioxide, total 19 mmol/ L 20-29 below low normal Not Available [facility] ([facility]) [address] [facility] [address], [place], [address], 04/27/2025 08:19:34 04/26/20 25 04/27/2025 COMP. METAB OLIC PANEL (14) calcium 9.4 mg/dL 8.7-10 .2 normal Not Available [facility] ([facility]) [address] [place], [address], 04/27/2025 08:19:34 04/26/20 25 04/27/2025 COMP. METAB OLIC PANEL (14) protein, total 7.2 g/dL 6.0-8. 5 normal Not Available [facility] ([facility]) [address] [place], [address], 04/27/2025 08:19:34 04/26/20 25 04/27/2025 COMP. METAB OLIC PANEL (14) albumin 4.7 g/dL 3.8-4. 9 normal Not Available [facility] ([facility]) [address] [place], [address], 04/27/2025 08:19:34 04/26/20 25 04/27/2025 COMP. METAB OLIC PANEL (14) globulin, total 2.5 g/dL 1.5-4. 5 Not Available [facility] ([facility]) [address] [place], [address], 04/27/2025 08:19:34 04/26/20 25 04/27/2025 COMP. METAB OLIC PANEL (14) bilirubin, total 0.4 mg/dL 0.0-1. 2 normal Not Available [facility] ([facility]) [address] [place], [address], 04/27/2025 08:19:34 04/26/20 25 04/27/2025 COMP. METAB OLIC PANEL (14) alkaline phosphatase 143 IU/L 44-121 above high normal Not Available [facility] ([facility]) [address] [place], [address], 04/27/2025 08:19:34 04/26/20 25 04/27/2025 COMP. METAB OLIC PANEL (14) AST (SGOT) 25 IU/L 0-40 normal Not Available [facility] ([facility]) [address] [place], [address], 04/27/2025 08:19:34 04/26/20 25 04/27/2025 COMP. METAB OLIC PANEL (14) ALT (SGPT) 21 IU/L 0-44 normal Not Available [facility] ([facility]) [address] [place], [address], 04/27/2025 08:19:34 04/26/20 25 04/27/2025 LIPID PANEL cholesterol, total 111 mg/dL 100-19 9 normal Not Available [facility] ([facility]) [address] [place], [address], 04/27/2025 08:19:35 04/26/20 25 04/27/2025 LIPID PANEL triglyceride s 114 mg/dL 0-149 normal Not Available [facility] ([facility]) [address] [place], [address], 04/27/2025 08:19:35 04/26/20 25 04/27/2025 LIPID PANEL HDL cholesterol 37 mg/dL >39 below low normal Not Available [facility] ([facility]) [address] [place], [address], 04/27/2025 08:19:35 04/26/20 25 04/27/2025 LIPID PANEL VLDL cholesterol radha 21 mg/dL 5-40 Not Available [facility] ([facility]) [address] [place], [address], 04/27/2025 08:19:35 04/26/20 25 04/27/2025 LIPID PANEL LDL chol calc (nih) 53 mg/dL 0-99 Not Available [facility] ([facility]) [address] [place], [address], 04/27/2025 08:19:35 04/26/20 25 04/27/2025 LIPID PANEL LDL calc comment: CHART READER Not Available [facility] ([facility]) [address] [facility] [address], [place], [address], 04/27/2025 08:19:35 04/26/20 25 04/27/2025 VITAM IN B12 AND FOLAT E vitamin B12 395 pg/mL 232-12 45 normal Not Available [facility] ([facility]) [address] [facility] [address], [place], [address], 04/27/2025 08:19:36 04/26/20 25 04/27/2025 VITAM IN B12 AND FOLAT E folate (folic acid), serum 5.6 NG/mL >3.0 normal A serum folat e jose ntrat ion of less than 3.1 ng/mL is consi dered to repre sent clini radha defic iency . Not Available [facility] ([facility]) [address] [facility] [address], [place], [address], 04/27/2025 08:19:36 04/26/20 25 04/26/2025 PSA TOTAL (REFL EX TO FREE) reflex criteria Commen t The perce nt free PSA is perfo rmed on a refle x basis only when the total PSA is betwe en 4.0 and 10.0 ng/mL . Not Available [facility] ([facility]) [address] [facility] [address], [place], [address], 04/27/2025 08:19:36 04/26/20 25 04/27/2025 PSA TOTAL (REFL EX TO FREE) prostate specific Ag 0.8 NG/mL 0.0-4. 0 normal Amanda ECLIA metho dolog y. Accor ding to the Ameri can Urolo gical Assoc iatio n, Serum PSA shoul d decre ase and remai n at undet ectab le level s after radic al prost atect aravind. The AUA defin es bioch emica l recur rence as an initi al PSA value 0.2 ng/mL or great er follo wed by a subse quent confi rmato ry PSA value 0.2 ng/mL or great er. Value s obtai tashi with diffe rent assay metho ds or kits canno t be used inter monroy eably . Resul ts canno t be inter prete d as absol ze evide nce of the prese nce or absen ce of delores haines se. Not Available [facility] ([facility]) [address] [facility] [address], [place], [address], 04/27/2025 08:19:36 04/26/20 25 04/27/2025 HEMOG LOBIN A1C hemoglobin A1C 4.9 % 4.8-5. 6 normal Predi abete s: 5.7 - 6.4 Diabe kenyatta: >6.4 Glyce ranjith contr ol for adult s with diabe kenyatta: <7.0 Not Available [facility] ([facility]) [address] [facility] [address], [place], [address], 04/27/2025 08:19:37 04/26/20 25 04/27/2025 VITAM IN D, 25-HY DROXY vitamin D, 25-hydroxy 70.3 NG/mL 30.0-1 00.0 Vitam in D defic iency has been defin ed by the Insti tute of Medic ine and an Endoc rine Socie ty pract ice guide line as a level of serum 25-OH vitam in D less than 20 ng/mL (1,2) . The Endoc rine Socie ty went on to furth er defin e vitam in D insuf ficie ncy as a level betwe en 21 and 29 ng/mL (2). 1. IOM (Inst itute of Medic ine). 2010. Dieta ry refer ence intak es for calci um and D. Jose gillette [place]: [facility] . 2. Theodora KAUR, Sania zimmerman [place], [facility] i FARAH, et al. Evalu ation , treat ment, and preve ntion of vitam in D defic iency : an Endoc rine Socie ty clini radha pract ice guide line. JCEM. 2010; 96(7) :1911 -30. Not Available [facility] ([facility]) [address], [place], [address], 04/27/2025 08:19:38 Result Notes None recorded. Problems Name Problem SNOMED Code Status Onset Date Resolution Date Notes Provider Name and Address Organization Details Recorded Time Myocardial infarction 34340425 Active 2023 Abena Dee [facility], [place] - [facility] 14:29:01 Rheumatoid arthritis 46907661 Active 2023 Lashaun Stokes, DIRECTOR WEB [address], [place], [address], [place] - [facility] 14:46:25 History of pericarditi s 4879362522310 Active 2023 Lashaun Stokes, DIRECTOR WEB [address], [place], [address], [place] - [facility] 4 14:46:32 Congestive heart failure 05108419 Active 2023 Lashaun Stokes, DIRECTOR WEB [address], [place], [address], [place] - [facility] 4 14:50:30 Essential hypertensio n 39027912 Active 2023 Lashaun Stokes, DIRECTOR WEB [address], [place], [address], [place] - [facility] 4 14:50:33 Hyperlipide philomena 76319421 Active 2023 Lashaun Stokes, DIRECTOR WEB [address], [place], [address], [place] - [facility] 4 14:52:22 Anemia 707265048 Active 2023 Lashaun Stokes, DIRECTOR WEB [address], [place], [address], [place] - [facility] 4 14:45:43 Alkaline phosphatase above reference range 836576907 Active 2023 Lashaun Stokes, DIRECTOR WEB [address], [place], [address], [place] - [facility] 4 14:45:43 Hyperglycem ia 08353956 Active 2023 Lashaun Stokes DIRECTOR WEB [address], [place], [address], [place] - [facility] 4 14:45:45 Rheumatoid factor detected 576704083 Active 2023 Lashaun Stokes APRN [address], [place], [address], [place] - [facility] 4 14:45:47 Vitamin D deficiency 13876375 Active 2023 Lashaun Stokes DIRECTOR WEB [address], [place], [address], [place] - [facility] 4 15:03:04 Prediabetes 427865169 Active 2023 Lashaun Stokes APRN [address], [place], [address], [place] - [facility] 4 12:33:59 Heart failure with reduced ejection fraction 044806970 Active 2023 Lashaun Stokes DIRECTOR WEB [address], [place], [address], [place] - [facility] 4 09:10:23 Iron deficiency anemia 02952611 Active 2024 Lashaun Stokes APRN [address], [place], [address], [place] - [facility] 5 15:42:24 Anxiety 54876202 Active 2024 Lashaun Stokes APRN [address], [place], [address], [place] - [facility] 5 10:15:27 Problem Notes None recorded. Procedures Surgical History Date Name Laterality Status Provider Name and Address Organization Details Recorded Time procedure on heart completed Connie Anderson [place] - [facility] 05/19/2024 14:49:39 Imaging Results None recorded. Procedure Notes None recorded. Medical Equipment None Reported. Allergies No known drug allergies Medications Name Sig Start Date Stop Date Status Note LastModified by Organization Details LastModified Time atorvastati n 40 mg tablet TAKE 1 TABLET BY MOUTH ONCE DAILY. 06/12 completed Not Available Not Available Not Available atorvastati n 80 mg tablet TAKE ONE (1) TABLET BY MOUTH EVERY DAY active Not Available Not Available No t Available acetaminoph en 325 mg tablet Take 2 tablets as needed by oral route. active Not Available Not Available No t Available carvedilol 6.25 mg tablet TAKE (1) TABLET BY MOUTH TWICE A DAY. 06/12 completed Not Available Not Available Not Available carvedilol 12.5 mg tablet TAKE (1) TABLET BY MOUTH TWICE A DAY. 06/12 completed Not Available Not Available Not Available sulfasalazi ne 500 mg tablet TAKE THREE (3) TABLETS BY MOUTH TWICE DAILY 02/27 completed Not Available Not Available Not Available metoprolol succinate ER 50 mg tablet,exte nded release 24 hr TAKE ONE (1) TABLET BY MOUTH EACH MORNING AND AT NOON, THEN TWO (2) TABLETS EVERY NIGHT AT BEDTIME active Not Available Not Available No t Available metoprolol succinate ER 200 mg tablet,exte nded release 24 hr TAKE 1 TABLET BY MOUTH ONCE A DAY. 08/29 completed Not Available Not Available Not Available prednisone 20 mg tablet TAKE 1 TABLET BY MOUTH TWICE DAILY. 06/12 completed Not Available Not Available Not Available metoprolol succinate ER 100 mg tablet,exte nded release 24 hr TAKE ONE (1) TABLET EVERY DAY BY ORAL ROUTE FOR 30 DAYS. 08/29 completed Not Available Not Available Not Available sertraline 100 mg tablet TAKE ONE (1) TABLET BY MOUTH EVERY DAY 2024 active Not Available Not Available Not Avai lable sulfasalazi ne 500 mg tablet,madi yed release TAKE THREE (3) TABLETS BY MOUTH TWICE DAILY active Not Available Not Available No t Available phentermine 37.5 mg tablet TAKE 1 TABLET BY MOUTH ONCE DAILY. 06/12 completed Not Available Not Available Not Available clopidogrel 75 mg tablet TAKE 1 TABLET BY MOUTH ONCE A DAY. 07/03 completed Not Available Not Available Not Available omeprazole 40 mg capsule,del ayed release TAKE (1) CAPSULE BY MOUTH ONCE A DAY. 06/12 completed Not Available Not Available Not Available aspirin 81 mg tablet,madi yed release TAKE ONE (1) TABLET BY MOUTH EVERY DAY active Not Available Not Available No t Available tramadol 50 mg tablet TAKE (1) TABLET BY MOUTH EVERY EIGHT HOURS NEEDED FOR PAIN FOR UP TO 5 DAYS. 06/12 completed Not Available Not Available Not Available spironolact one 25 mg tablet TAKE ONE HALF (1/2) TAB BY MOUTH EVERY DAY 03/26 completed Not Available Not Available Not Available simvastatin 40 mg tablet TAKE 1 TABLET BY MOUTH ONCE A DAY. 06/15 completed Not Available Not Available Not Available carvedilol 3.125 mg tablet TAKE 1 TABLET BY MOUTH WITH BREAKFAST AND DINNER. 06/12 completed Not Available Not Available Not Available magnesium oxide 400 mg (241.3 mg magnesium) tablet Take 1 tablet twice a day by oral route for 14 days. 06/15 completed Not Available Not Available Not Available methotrexat e sodium 2.5 mg tablet TAKE 6 TABLETS BY MOUTH EVERY WEEK 06/12 completed Not Available Not Available Not Available pantoprazol e 40 mg tablet,madi yed release TAKE ONE (1) TABLET BY MOUTH EACH EVENING active Not Available Not Available No t Available nitroglycer in 0.[address] by sublingua l route as needed. active Not Available Not Available No t Available diclofenac sodium 75 mg tablet,madi yed release TAKE (1) TABLET BY MOUTH TWICE A DAY. 06/12 completed Not Available Not Available Not Available folic acid 1 mg tablet TAKE 1 TABLET BY ORAL ROUTE EVERY DAY OTHER THAN THE DAY YOU TAKE METHOTREX ATE 06/26 completed Not Available Not Available Not Available mupirocin 2 % topical ointment 06/12 completed Not Available Not Available Not Available furosemide 20 mg tablet TAKE ONE (1) TABLET EVERY DAY BY ORAL ROUTE NEEDED FOR 90 DAYS. active Not Available Not Available No t Available metoprolol succinate ER 25 mg tablet,exte nded release 24 hr TAKE THREE (3) TABLETS BY MOUTH EVERY DAY AT NOON 08/07 completed Not Available Not Available Not Available methylpredn isolone 4 mg tablets in a dose pack TAKE DIRECTED ON PACKAGE INSTRUCTI ONS. TAPER DIRECTED OVER SIX (6) DAYS. 07/03 completed Not Available Not Available Not Available albuterol sulfate HFA 90 mcg/actuati on aerosol inhaler INHALE 2 PUFFS FOUR TIMES DAILY NEEDED active Not Available Not Available No t Available doxycycline hyclate 100 mg tablet TAKE 1 TABLET BY MOUTH EVERY 12 HOURS 06/12 completed Not Available Not Available Not Available loratadine 10 mg tablet TAKE ONE (1) TABLET BY MOUTH EVERY DAY active Not Available Not Available No t Available naproxen 500 mg tablet TAKE (1) TABLET BY MOUTH TWICE A DAY NEEDED 12/26 completed Not Available Not Available Not Available valsartan 40 mg tablet Take 0.5 tablets twice a day by oral route for 30 days. 05/24 completed Not Available Not Available Not Available eplerenone 25 mg tablet TAKE ONE HALF (1/2) TABLET BY MOUTH ONCE DAILY. active Not Available Not Available No t Available ezetimibe 10 mg tablet TAKE ONE (1) TABLET BY MOUTH ONCE DAILY. active Not Available Not Available No t Available cholecalcif shree (vitamin D3) 1,250 mcg (50,000 unit) capsule TAKE ONE (1) CAPSULE BY MOUTH EVERY WEEK 2024 active Not Available Not Available Not Avai lable FeroSul 325 mg (65 mg iron) tablet TAKE ONE (1) TABLET EVERY DAY BY ORAL ROUTE FOR 30 DAYS. 2024 active Not Available Not Available Not Avai lable Prodigy Autocode Meter kit USE DIRECTED TO TEST BLOOD SUGAR THREE (3) TIMES DAILY active Not Available Not Available No t Available diclofenac 1 % topical gel APPLY 2-4 GRAMS TOPICALLY THREE (3) TO FOUR (4) TIMES PER DAY NEEDED FOR PAIN active Not Available Not Available No t Available Prodigy No Coding strips USE DIRECTED UP TO THREE (3) TIMES DAILY TO TEST BLOOD SUGAR active Not Available Not Available No t Available Easy Touch Twist Lancets 32 gauge USE DIRECTED UP TO THREE (3) TIMES DAILY TO TEST BLOOD SUGAR active Not Available Not Available No t Available guaifenesin ER 600 mg tablet, extended release 12 hr TAKE 1 TABLET BY MOUTH TWICE DAILY. 06/12 completed Not Available Not Available Not Available Jardiance 10 mg tablet TAKE ONE (1) TABLET EVERY DAY BY ORAL ROUTE FOR 30 DAYS. 2024 active Not Available Not Available Not Avai lable Entresto 24 mg-26 mg tablet TAKE ONE (1) TABLET BY MOUTH TWICE DAILY 2024 active Not Available Not Available Not Avai lable Orencia ClickJect 125 mg/mL subcutaneou s auto-inject or active Not Available Not Available Not Available EC-Naproxen 500 mg tablet,madi yed release TAKE (1) TABLET BY MOUTH TWICE A DAY. 06/12 completed Not Available Not Available Not Available Vitals Date Recorded Body height Body mass index (BMI) Body weight Oxygen saturation Oxygen saturation in Arterial blood by Pulse oximetry Heart rate Respiratory rate Pain severity - 0-10 verbal numeric rating [Score] - Reported Systolic And Diastolic Provider Name and Address Organization Details Last Updated DateTime 5 177.8 cm 36.9 kg/m2 727685. 24 g 97 % 97 % 90 /min 18 /min 0 116/78 mm[Hg] Connie Geagley [place] - [facility] 5 15:11:40 Date Recorded Body height Body mass index (BMI) Body weight Oxygen saturation Oxygen saturation in Arterial blood by Pulse oximetry Respiratory rate Heart rate Systolic And Diastolic Provider Name and Address Organization Details Last Updated DateTime 5 177.8 cm 37.4 kg/m2 269426. 61 g 97 % 97 % 16 /min 86 /min 124/76 mm[Hg] Connie Geagley [place] - [facility] 5 09:40:04 Date Recorded Body height Body mass index (BMI) Body weight Heart rate Oxygen saturation Oxygen saturation in Arterial blood by Pulse oximetry Respiratory rate Pain severity - 0-10 verbal numeric rating [Score] - Reported Systolic And Diastolic Provider Name and Address Organization Details Last Updated DateTime 4 177.8 cm 32.7 kg/m2 902377. 06 g 80 /min 95 % 95 % 18 /min 0 116/74 mm[Hg] Connie Geagley [place] - [facility] 4 14:51:41 Date Recorded Body height Body mass index (BMI) Body weight Pain severity - 0-10 verbal numeric rating [Score] - Reported Heart rate Oxygen saturation Oxygen saturation in Arterial blood by Pulse oximetry Respiratory rate Systolic And Diastolic Provider Name and Address Organization Details Last Updated DateTime 4 177.8 cm 34.6 kg/m2 725582. 76 g 0 86 /min 97 % 97 % 16 /min 120/68 mm[Hg] Connie Geagley [place] - [facility] 4 14:43:37 Date Recorded Body height Body mass index (BMI) Body weight Heart rate Oxygen saturation Oxygen saturation in Arterial blood by Pulse oximetry Respiratory rate Pain severity - 0-10 verbal numeric rating [Score] - Reported Systolic And Diastolic Provider Name and Address Organization Details Last Updated DateTime 4 177.8 cm 34.6 kg/m2 887109. 76 g 80 /min 98 % 98 % 16 /min 0 126/72 mm[Hg] Connie Anderson [place] - [facility] 4 16:02:42 Social History Question Answer Notes LastModified by Organizat ion Details LastModified Time Tobacco Smoking Status Former Smoker [place], [place] - [facility] 05/12/2024 14:35:12 Do You Have An Advance Directive? No Information not available 05/12/2024 Are You Blind Or Do You Have Difficulty Seeing? No Information not available 05/12/2024 What Is Your Level Of Caffeine Consumption? Occasional Information not available 05/12/2024 In The 14 Days Before Symptom Onset, Have You Had Close Contact With A Laboratory-confir med COVID-19 While That Case Was Ill? No Information not available 05/12/2024 In The 14 Days Before Symptom Onset, Have You Had Close Contact With A Person Who Is Under Investigation For COVID-19 While That Person Was Ill? No Information not available 05/12/2024 Have You Been To An Area Known To Be High Risk For COVID-19? No Information not available 05/12/2024 Are You Deaf Or Do You Have Serious Difficulty Hearing? No Information not available 05/12/2024 Have You Processed Blood Or Body Fluids From An Ebola Virus Disease Patient Without Appropriate PPE? No Information not available 05/12/2024 Do You Reside In Or Have You Traveled To An Area Where Ebola Virus Transmission Is Active? No Information not available 05/12/2024 Have There Been Any Changes To Your Family Or Social Situation? No Information no t available 05/12/2024 What Is The Fluoride Status Of Your Home? Unknown Information not available 05/12/2024 When Did You Quit Smoking? 1-5yearssincel idalia Information not available 05/12/2024 Have You Recently Or Are You Planning To Travel To An Area With Zika Virus? No Information not available 05/12/2024 Do You Have A Medical Power Of Technical Solutions Engineer? No Information not available 05/12/2024 What Was The Date Of Your Most Recent Tobacco Screening? 04/26/2025 [email or web address] Information not available 04/26/2025 What Is Your Relationship Status? Information not available 05/12/2024 Are You Sexually Active? Yes Information not available 05/12/2024 Do You Have Smoke And Carbon Monoxide Detectors In Your Home? Yes Information not available 05/12/2024 Are You Passively Exposed To Smoke? No Information no t available 05/12/2024 Do You Have Difficulty Walking Or Climbing Stairs? No Information not available 05/12/2024 Sex: Unknown Functional Status Question Answer Note LastModified by Organizat ion Details LastModified Time Do you use any illicit or recreational drugs? No Information not available 05/12/2024 What is your level of alcohol consumption? None Information not available 05/12/2024 Do you have transportation difficulties? No Information not available 05/12/2024 Are you able to walk? YESWOREST Information not available 05/12/2024 Do you have difficulty doing errands alone? No Information not available 05/12/2024 Are you able to care for yourself independently? Yes Information not available 05/12/2024 Do you have difficulty dressing, bathing, grooming, or toileting? No Information not available 05/12/2024 Mental Status Question Answer Note LastModified by Organization D etails LastModified Time Do you have difficulty concentrating, remembering or making decisions? No Information no t available 05/12/2024 Family History Nothing Reported. Medical History No medical history recorded. Immunizations Vaccine Type Date Status Note Provider Nam e and Address Organization Details Recorded Time COVID-19, mRNA, LNP-S, PF, 100 mcg/0.5mL dose or 50 mcg/0.25mL dose 11/15/2021 completed Not Available [facility] 5 09:21:12 COVID-19, mRNA, LNP-S, PF, 100 mcg/0.5mL dose or 50 mcg/0.25mL dose 12/13/2021 completed Not Available [facility] 5 09:21:12 Past Encounters Encounter ID Performer Location Encounter Start Date Encounter Closed Date Diagnosis/Indication Diagnosis SNOMED-CT Code Diagnosis ICD10 Code Diagnosis Note [id number] Lashaun Stokes APRN [address] [place] [address] 05/12/2024 14:03:09 05/12/2024 15:19:33 Patient new to provider [id number] 20091 Z76.89 Rheumatoid arthritis 698 10731 M06.9 Will call with results History of pericarditis 7334011715 36910 Z86.79 Sees Cardiology Congestive heart failure 49795603 I50.9 Sees Cardiology - continue with F/U appt's as scheduled Vitamin D deficiency 347 40999 E55.9 Essential hypertension 34723347 I10 Well-contr olled Hyperlipidemia 26625941 E78.5 Labs ordered as above Long-term drug therapy 229475225 Z79.899 Referred for pill pack Bursitis o f olecranon of right elbow [id number] 51760 M70.21 F/U PRN or see Ortho if no improvemen t or worsening Body mass index 30+ - obesity 721980284 Z68.32 Obesity 232480458 E66.9 [id number] Lashaun Stokes APRN [address] [place] [address] 05/19/2024 14:37:04 05/19/2024 15:22:27 C-reactive protein above reference range 0228819326 95227 R79.82 Discussed with patient likely related to elevated RF Erythrocyt e sedimentation rate above reference range 073292375 R70.0 Discussed with patient likely related to elevated RF Rheumatoid factor detected 500789549 R76.0 RF 275.2 - referred to Rheumatolo gy Hyperglycemia 61951655 R 73.9 Will call with results Alkaline p hosphatase above reference range 103757518 R74.8 Will continue to monitor and repeat with next labs in 3 months Anemia 132615922 D64.9 Additional iron studies today - will call with resultsSta rt ferrous sulfate - F/U 1 month to repeat labs Body mass index 30+ - obesity 353564313 Z68.32 Obesity 338176185 E66.9 Vitamin D deficiency 347 37187 E55.9 Start D3 supplement once weekly [id number] Lashaun Stokes APRN [address] [place] [address] 06/12/2024 14:16:20 06/12/2024 15:12:36 Myocardial infarction 08991688 I21.9 Follows with Cardiology History of pericarditis 2583073122 72458 Z86.79 Sees Cardiology Essential hypertension 20361310 I10 Well-contr olled Congestive heart failure 90855156 I50.9 Sees Cardiology - continue with F/U appt's as scheduled Prediabetes 502006860 R7 3.03 Will re-check 3 months Iron defic iency anemia 18966219 D50.9 Continue iron supplement daily - F/U 1 month to repeat labs [id number] Lashaun Stokes APRN [address] [place] [address] 09/15/2024 15:54:02 09/15/2024 16:24:40 Rheumatoid factor detected 821443146 R76.0 Follows with Rheumatolo gy - was started on Orencia recently which has been helping and has appt. in October for that with labs Myocardial infarction 22 036596 I21.9 Follows with Cardiology - has next appt. October at [facility] for 3 months check-up and was seen by Cardiologi st Dr. Hicks in August 2024. Anemia [id number] D64.9 Will call with results Alkaline p hosphatase above reference range [id number] R74.8 Congestive heart failure [id number] I50.9 Sees Cardiology - continue with F/U appt's as scheduled Hyperlipidemia 53748005 E78.5 Labs ordered as above Essential hypertension 87824004 I10 Well-contr olled Rheumatoid arthritis 698 02099 M06.9 Follows with Rheumatolo gy Prediabetes [id number] R7 3.03 Body mass index 30+ - obesity 906968228 Z68.34 Obesity 276372947 E66.9 Vitamin D deficiency 347 00984 E55.9 Will call with results - continue D3 weekly for now [id number] Lashaun Stokes APRN [address] [place] [phone] 01/11/2025 14:50:36 01/11/2025 16:24:37 Hyperlipidemia 56869994 E78.5 Labs ordered as below Vitamin D deficiency 347 28892 E55.9 Will call with results - continue D3 weekly for now Prediabetes 855649371 R7 3.03 Will call with results; last A1C 5.0 on 10/01/24 Essential hypertension 88671597 I10 Well-contr olled Rheumatoid arthritis 698 96131 M06.9 Follows with Rheumatenzo cobb - had appt. today and has F/U scheduled Iron defic iency anemia 32155234 D50.9 Continue iron supplement daily - will call with results of labs [id number] Lashaun Stokes APRN [address] [place] [phone] 04/26/2025 09:20:24 04/26/2025 10:41:25 General examination of patient 025866727 Z00.00 Screening for cardiovascular system disease 250543719 Z13.6 Endocrine/ metabolic screening 068015694 Z13.228 Will call with results Exercises education, guidance, and counseling 731954864 Z71.82 The patient was advised to continue a healthy diet and exercise regularly. Dietary ma nagement surveillance 970515986 Z71.3 Hyperlipid emia screening 882889998 Z13.220 Labs ordered as above Screening for malignant neoplasm of prostate 325004432 Z12.5 Congestive heart failure 54015973 I50.9 Sees Cardiology - continue with F/U appt's as scheduled - has one upcoming that is scheduled advised to discuss concerns with them as well as MRI that was ordered by them that he was unable to have done as they could not decide whether it was safe or not due to his pacemaker wire Prediabetes 189519940 R7 3.03 Will call with results; last A1C 4.7 in January 2025; Advised to check glucose at times when he is feeling hot/clammy or feeling bad and also fasting and keep log to bring to F/U visit - discussed would like to R/O glucose issues as cause of symptoms he is experienci ng. Vitamin D deficiency 347 20198 E55.9 Will call with results - continue D3 weekly for now Anxiety 35573797 F41.9 Discussed I feel a lot of his symptoms are manifested /made worse by being anxious and having anxiety from traumatic events that he has been through with open heart surgery, etc. Patient does take sertraline daily, but does not desire to try any other medication s at this time. Screening for malignant neoplasm of colon 530252058 Z12.11 Body mass index 30+ - obesity 248587331 Z68.37 Obesity 093543342 E66.9 Health Concerns Section Related Observation LastModified by Organization Detai ls LastModified Time None Recorded Concern Status LastModified by Organization Details LastModified Time None Recorded Advance Directives Directive N: Payers Insurance Date Sequence Insurance Name Policy Number Policy Gorman Covered Member ID Gorman Member ID Guarantor Name 05/09/2025 1 [place] [id number] 1 Grant Fitzpatrick [id number] Grant Fitzpatrick
--- OUTSIDE RECORDS SUMMARY | 2025-06-04 14:59 | XMS_ITS | Referral Summary ---
Author Organization [employer] ([place], [place], [place], [place]) Address [address] [place] [address] Care Team Providers Care Leading Firefighter Name Role Phone Narciso Holly MD Unavailable Donal Hurtado MD Unavailable [phone] Justin Fountain MD Unavailable [phone] Allergies No known active allergies Medications sertraline (ZOLOFT) 100 MG tablet Take 1 tablet (100 mg total) by mouth daily. Active diclofenac (VOLTAREN) 25 MG EC tablet Take 1 tablet (25 mg total) by mouth 2 (two) times daily. Active albuterol HFA (VENTOLIN HFA) 90 mcg/actuation inhaler Inhale 1 puff by mouth via inhaler every 6 (six) hours as needed for Wheezing. Active loratadine (CLARITIN) 10 mg tablet Take 1 tablet (10 mg total) by mouth daily as needed for Allergies. 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 No 01/31/2024 Food Insecurity Answer Date Recorded Within the past 12 months, y ou worried that your food would run out before you got money to buy more. Never true 01/31/2024 Within the past 12 months, t he food you bought just didn't last and you didn't have money to get more. Never true 01/31/2024 Transportation Needs Answer Date Record ed In the past 12 months, has l ack of reliable transportation kept you from medical appointments, meetings, work or from getting things needed for daily living? No 01/31/2024 Financial Resource Strain Answer Date R ecorded How hard is it for you to pa y for the very basics like food, housing, medical care, and heating? Would you say it is: Not hard at all 01/31/2024 Employment Answer Date Recorded Do you want help finding or keeping work or a job? I do not need or want help 01/31/2024 Family and Community Support Answer Librado e Recorded If for any reason you need h elp with day-to-day activities such as bathing, preparing meals, shopping, managing finances, etc., do you get the help you need? I don't need any help 01/31/2024 Feeling Lonely or Isolated 0 01/30 Educational Attainment Answer Date Delonte rded Do you speak a language other than [place]an at [facility]? No 01/31/2024 Do you want help with school or training? For example, starting or completing job training or getting a high school diploma, GED or equivalent. No 01/31/2024 Physical Activity Answer Date Recorded Number of minutes of exercise per week 240 01/31/2024 Substance Use Answer Date Recorded How many times in the past y ear have you used prescription drugs for non-medical reasons? Never 01/31/2024 How many times in the past year have you used [place] legal drugs? Never 01/31/2024 Sex and Gender Information Value Date Recorded Sex Assigned at Not on file Legal Sex Male 2:28 PM CDT Gender Identity Not on file Sexual Orientation Not on file Last Filed Vital Signs Vital Sign Reading Time Taken Comments Blood Pressure 115/71 02/02/2024 3:42 PM EDT Pulse 86 02/02/2024 3:42 PM EDT Temperature 37.1 C (98.8 F) 02/02/2024 11:36 AM EDT Respiratory Rate 18 02/02/2024 3:42 PM EDT Oxygen Saturation 72% 02/02/2024 1:52 PM EDT Inhaled Oxygen Concentration - - Weight 117.9 kg (260 lb) 01/31/2024 11:00 PM EDT Height 182.9 cm (6') 01/31/2024 11:00 PM EDT Body Mass Index 35.26 01/31/2024 11:00 PM EDT Plan of Treatment Not on file Insurance BLUE CROSS/BLUE SHIELD Care Teams Leading Firefighter Relationship Specialty Start Date End Date Narciso Holly MD [address] [facility], [facility] [address] [place] [address] Interventional Cardiology 02/03/24 Donal Hurtado MD [address] [facility] [address] [place] [address] Surgeon Cardiothoracic Surgery 02/03/24 Justin Fountain MD [address] [place] [address] Referring Physician Cardiology 04/19/24
--- OUTSIDE RECORDS SUMMARY | 2025-06-04 14:59 | XMS_ITS | Clinical Summary ---
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 No 01/31/2024 Do you want help with [...] 01/31/2024 11:00 PM EDT Plan of Treatment Health Maintenance Due Date Last Done Comments CT Colonography 1969 Colonoscopy 1969 Colorectal Cancer Screening 1969 FOBT/FIT 1969 Fit-DNA (Cologuard) 1969 Sigmoidoscopy 1969 Depression Screening (12+) 1981 Tobacco Cessation Counseling and Screening (12+) 1981 HIV Screening 1984 Hepatitis C Screening 1987 DTAP/TDAP/TD VACCINES (1 - Tdap) 1988 Pneumococcal 50+ years (1 of 2 - PCV) 1988 Lipid Panel 2004 Shingles Vaccine (Zoster) (1 of 2) 2019 COVID-19 VACCINE (3 - season) 07/09/202403/2022, 11/15/2021 Influenza Vaccine (#1) 2025 Insurance BLUE CROSS/BLUE SHIELD Care Teams Stationary Engineer Relationship Specialty Start Date End Date Narciso Holly MD [address] [place] [address] Interventional Cardiology 02/03/24 Donal Hurtado MD [address] [facility] [address] [place] [address] Surgeon Cardiothoracic Surgery 02/03/24 Justin Fountain MD [address] [place] [address] [place] [address] Referring Physician Cardiology 04/19/24
--- OUTSIDE RECORDS SUMMARY | 2025-06-04 14:59 | XMS_ITS | Encounter Summary ---
Author Organization [employer] ([place], [place], [place], [place]) Address [address] [place] [address] Care Team Providers Care Senior Ios Software Engineer Name Role Phone Narciso Holly MD Unavailable Donal Hurtado MD Unavailable [phone] Justin Fountain MD Unavailable [phone] Encounter Details Date Type Department Care Team (Late st Contact Info) Description 04/19/2024 Telephone [facility] Cardiothoracic Surgery - [address] [address] Fabiola Muro RN Social History Tobacco Use Types Packs/Day Years Used Date Smoking Tobacco: Never Smokeless Tobacco: Never Alcohol Use Standard Drinks/Week Comments Never 0 (1 standard drink = 0.6 oz pur e alcohol) Utilities Answer Date Recorded In the past 12 months, has t he [employer], gas, oil, or water [employer] threatened to shut off services in your [...] Do you speak a language other than Swedish at [facility]? No 01/31/2024 Do you want [...] on file Sexual Orientation Not on file documented as of this encounter Miscellaneous Notes * Telephone Encounter - Fabiola Muro RN - 04/19/2024 3:05 PM EDT Unable to make contact with patient concerning [facility] referral. He has not followed up with Dr Bah And they have no communication from [facility], Last communication with patient herelated that he had an appointment with [facility] documented in this encounter Plan of Treatment Not on file documented as of this encounter Visit Diagnoses Not on filedocumented in this encounter Care Teams Senior Ios Software Engineer Relationship Specialty Start Date End Date Narciso Holly MD [address] [place] [address] Interventional Cardiology 02/03/24 Donal Hurtado MD [address] [facility] [address] [place] [address] Surgeon Cardiothoracic Surgery 02/03/24 Justin Fountain MD [address] [place] [address] [place] [address] Referring Physician Cardiology 04/19/24 documented as of this encounter
--- OUTSIDE RECORDS SUMMARY | 2025-06-04 14:59 | XMS_ITS | Continuity of Care Document ---
Author Organization [facility] Address [address] [address] Assessment Encounter Date Assessment Date Assessment LastModified [...] [address], [address], [place], [address], 04/27/2025 08:19:36 vitamin D, 25-hydrox y, total, serum 2024 025 ABEL [facility], [address], [address], [place], [address], 04/27/2025 08:19:38 CMP, serum or plasma 2024 025 ABEL [facility], [address], [address], [place], [address], 04/27/2025 08:19:34 HbA1c (hemoglob in A1c), blood 2024 025 ABEL [facility], [address], [address], [place], [address], 04/27/2025 08:19:37 TSH + free T4, serum 2024 025 ABEL [facility], [address], [address], [place], [address], 04/27/2025 08:19:33 cobalamin and folate panel, serum 2024 025 ABEL [facility], [address], [address], [place], [address], 04/27/2025 08:19:36 CBC w/ auto diff 2024 025 ABEL [facility], [address], [address], [place], [address], 04/27/2025 08:19:33 lipid panel, serum 2024 025 ABEL [facility], [address], [address], [place], [address], 04/27/2025 08:19:35 noninvasi ve colorecta l cancer DNA + occult blood screening , QL, stool 2024 025 [email or web address] [facility] (Cologuard Orders Only), [address], [address], [place], [address], 05/17/2025 07:14:50 Referral None recorded. Procedures None recorded. Surgeries None recorded. Imaging None recorded. Medication Orders None recorded. Patient TargetsNo targets recorded. Patient Instructions Encounter Date Encounter Id Patient Instructions Last Modified By Organization Details Last Modified Time 04/26/2025 [id number] Men's Guide to Preventive Health Care Not available 04/26/2025 10:12:13 eating healthy foods: care instructions Not available 04/26/2025 10:12:13 learning about healthy weight Not available 04/26/2025 10:20:42 body mass index: care instructions Not available 04/26/2025 10:20:42 walking for exercise: care instructions Not available 04/26/2025 10:12:13 Reason for Referral None Reported. Results Created Date Observation Date Name Description Value Unit Range Abnormal Flag Note LastModifiedBy Organization Detail LastModifiedTime 04/26/2004/27/2025 TSH+F REE T4 TSH 2.280 uIU/m L 0.450- 4.500 normal Not Available [facility] ([facility]) [address] [place], [address], 04/27/2025 08:19:33 04/26/20 25 04/27/2025 TSH+F REE T4 T4,free(dire ct) 1.07 NG/dL 0.82-1 .77 normal Not Available [facility] ([facility]) [address] [place], [address], 04/27/2025 08:19:33 04/26/20 25 04/27/2025 CBC WITH DIFFE RENTI AL/PL ATELE T WBC 7.2 x10e3 /uL 3.4-10 .8 normal Not Available [facility] ([facility]) [address] [place], [address], 04/27/2025 08:19:33 04/26/20 25 04/27/2025 CBC WITH DIFFE RENTI AL/PL ATELE T RBC 5.03 x10e6 /uL 4.14-5 .80 normal Not Available [facility] ([facility]) [address] [place], [address], 04/27/2025 08:19:33 04/26/20 25 04/27/2025 CBC WITH DIFFE RENTI AL/PL ATELE T hemoglobin 13.1 g/dL 13.0-1 7.7 normal Not Available [facility] ([facility]) [address] [place], [address], 04/27/2025 08:19:33 04/26/20 25 04/27/2025 CBC WITH DIFFE RENTI AL/PL ATELE T hematocrit 44.8 % 37.5-5 1.0 normal Not Available [facility] ([facility]) [address] [place], [address], 04/27/2025 08:19:33 04/26/20 25 04/27/2025 CBC WITH DIFFE RENTI AL/PL ATELE T MCV 89 fL 79-97 normal Not Available [facility] ([facility]) [address] [facility], [place], [address], 04/27/2025 08:19:33 04/26/20 25 04/27/2025 CBC WITH DIFFE RENTI AL/PL ATELE T MCH 26.0 pg 26.6-3 3.0 below low normal Not Available [facility] ([facility]) [address] [place], [address], 04/27/2025 08:19:33 04/26/20 25 04/27/2025 CBC WITH DIFFE RENTI AL/PL ATELE T MCHC 29.2 g/dL 31.5-3 5.7 below low normal Not Available [facility] ([facility]) [address] [place], [address], 04/27/2025 08:19:33 04/26/20 25 04/27/2025 CBC WITH DIFFE RENTI AL/PL ATELE T RDW 13.6 % 11.6-1 5.4 Not Available [facility] ([facility]) [address] [place], [address], 04/27/2025 08:19:33 04/26/20 25 04/27/2025 CBC WITH DIFFE RENTI AL/PL ATELE T platelets 198 x10e3 /uL 150-45 0 normal Not Available [facility] ([facility]) [address] [place], [address], 04/27/2025 08:19:33 04/26/20 25 04/27/2025 CBC WITH DIFFE RENTI AL/PL ATELE T neutrophils 72 % not estab. normal Not Available [facility] ([facility]) [address] [facility], [place], [address], 04/27/2025 08:19:33 04/26/20 25 04/27/2025 CBC WITH DIFFE RENTI AL/PL ATELE T lymphs 14 % not estab. normal Not Available [facility] ([facility]) [address] [facility], [place], [address], 04/27/2025 08:19:33 04/26/20 25 04/27/2025 CBC WITH DIFFE RENTI AL/PL ATELE T monocytes 11 % not estab. normal Not Available [facility] ([facility]) [address] [facility], [place], [address], 04/27/2025 08:19:33 04/26/20 25 04/27/2025 CBC WITH DIFFE RENTI AL/PL ATELE T eos 2 % not estab. normal Not Available [facility] ([facility]) [address] [facility], [place], [address], 04/27/2025 08:19:33 04/26/20 25 04/27/2025 CBC WITH DIFFE RENTI AL/PL ATELE T basos 0 % not estab. normal Not Available [facility] ([facility]) [address] [facility], [place], [address], 04/27/2025 08:19:33 04/26/20 25 04/27/2025 CBC WITH DIFFE RENTI AL/PL ATELE T immature cells LENDING MANAGER Not Available [facility] ([facility]) [address] [facility], [place], [address], 04/27/2025 08:19:33 04/26/20 25 04/27/2025 CBC WITH DIFFE RENTI AL/PL ATELE T neutrophils (absolute) 5.2 x10e3 /uL 1.4-7. 0 normal Not Available [facility] ([facility]) [address] [place], [address], 04/27/2025 08:19:33 04/26/20 25 04/27/2025 CBC WITH DIFFE RENTI AL/PL ATELE T lymphs (absolute) 1.0 x10e3 /uL 0.7-3. 1 normal Not Available [facility] ([facility]) [address] [facility], [place], [address], 04/27/2025 08:19:33 04/26/20 25 04/27/2025 CBC WITH DIFFE RENTI AL/PL ATELE T monocytes(ab solute) 0.8 x10e3 /uL 0.1-0. 9 normal Not Available [facility] ([facility]) [address] [facility], [place], [address], 04/27/2025 08:19:33 04/26/20 25 04/27/2025 CBC WITH DIFFE RENTI AL/PL ATELE T eos (absolute) 0.1 x10e3 /uL 0.0-0. 4 normal Not Available [facility] ([facility]) [address] [facility], [place], [address], 04/27/2025 08:19:33 04/26/20 25 04/27/2025 CBC WITH DIFFE RENTI AL/PL ATELE T baso (absolute) 0.0 x10e3 /uL 0.0-0. 2 normal Not Available [facility] ([facility]) [address] [facility], [place], [address], 04/27/2025 08:19:33 04/26/20 25 04/27/2025 CBC WITH DIFFE RENTI AL/PL ATELE T immature granulocytes 1 % not estab. Not Available [facility] ([facility]) [address] [facility], [place], [address], 04/27/2025 08:19:33 04/26/20 25 04/27/2025 CBC WITH DIFFE RENTI AL/PL ATELE T immature grans (abs) 0.0 x10e3 /uL 0.0-0. 1 Not Available [facility] ([facility]) [address], [place], [address], 04/27/2025 08:19:33 04/26/20 25 04/27/2025 CBC WITH DIFFE RENTI AL/PL ATELE T NRBC LENDING MANAGER Not Available [facility] ([facility]) [address], [place], [address], 04/27/2025 08:19:33 04/26/20 25 04/27/2025 CBC WITH DIFFE RENTI AL/PL ATELE T hematology comments: LENDING MANAGER Not Available [facility] ([facility]) [address] [place], [address], 04/27/2025 08:19:33 04/26/20 25 04/27/2025 COMP. METAB OLIC PANEL (14) glucose 80 mg/dL 70-99 normal Not Available [facility] ([facility]) [address] [place], [address], 04/27/2025 08:19:34 04/26/20 25 04/27/2025 COMP. METAB OLIC PANEL (14) BUN 14 mg/dL 6-24 normal Not Available [facility] ([facility]) [address] [place], [address], 04/27/2025 08:19:34 04/26/20 25 04/27/2025 COMP. METAB OLIC PANEL (14) creatinine 1.00 mg/dL 0.76-1 .27 normal Not Available [facility] ([facility]) [address] [place], [address], 04/27/2025 08:19:34 04/26/20 25 04/27/2025 COMP. METAB OLIC PANEL (14) eGFR 89 mL/mi n/1.7 3 >59 normal Not Available [facility] ([facility]) [address] [place], [address], 04/27/2025 08:19:34 04/26/20 25 04/27/2025 COMP. METAB OLIC PANEL (14) BUN/creatini ne ratio 14 9-20 normal Not Available [facility] ([facility]) [address] [place], [address], 04/27/2025 08:19:34 04/26/20 25 04/27/2025 COMP. METAB OLIC PANEL (14) sodium 138 mmol/ L 134-14 4 normal Not Available [facility] ([facility]) [address] [facility], [place], [address], 04/27/2025 08:19:34 04/26/20 25 04/27/2025 COMP. METAB OLIC PANEL (14) potassium 5.0 mmol/ L 3.5-5. 2 normal Not Available [facility] ([facility]) [address] [place], [address], 04/27/2025 08:19:34 04/26/20 25 04/27/2025 COMP. METAB OLIC PANEL (14) chloride 104 mmol/ L 96-106 normal Not Available [facility] ([facility]) [address] [place], [address], 04/27/2025 08:19:34 04/26/20 25 04/27/2025 COMP. METAB OLIC PANEL (14) carbon dioxide, total 19 mmol/ L 20-29 below low normal Not Available [facility] ([facility]) [address] [place], [address], 04/27/2025 08:19:34 04/26/20 25 04/27/2025 COMP. METAB OLIC PANEL (14) calcium 9.4 mg/dL 8.7-10 .2 normal Not Available [facility] ([facility]) [address] [place], [address], 04/27/2025 08:19:34 04/26/20 25 04/27/2025 COMP. METAB OLIC PANEL (14) protein, total 7.2 g/dL 6.0-8. 5 normal Not Available [facility] ([facility]) [address] [place], [address], 04/27/2025 08:19:34 04/26/20 25 04/27/2025 COMP. METAB OLIC PANEL (14) albumin 4.7 g/dL 3.8-4. 9 normal Not Available [facility] ([facility]) [address] [place], [address], 04/27/2025 08:19:34 04/26/20 25 04/27/2025 COMP. METAB OLIC PANEL (14) globulin, total 2.5 g/dL 1.5-4. 5 Not Available [facility] ([facility]) [address] [place], [address], 04/27/2025 08:19:34 04/26/20 25 04/27/2025 COMP. METAB OLIC PANEL (14) bilirubin, total 0.4 mg/dL 0.0-1. 2 normal Not Available [facility] ([facility]) [address] [place], [address], 04/27/2025 08:19:34 04/26/20 25 04/27/2025 COMP. METAB OLIC PANEL (14) alkaline phosphatase 143 IU/L 44-121 above high normal Not Available [facility] ([facility]) [address] [place], [address], 04/27/2025 08:19:34 04/26/20 25 04/27/2025 COMP. METAB OLIC PANEL (14) AST (SGOT) 25 IU/L 0-40 normal Not Available [facility] ([facility]) [address] [place], [address], 04/27/2025 08:19:34 04/26/20 25 04/27/2025 COMP. METAB OLIC PANEL (14) ALT (SGPT) 21 IU/L 0-44 normal Not Available [facility] ([facility]) [address] [place], [address], 04/27/2025 08:19:34 04/26/20 25 04/27/2025 LIPID PANEL cholesterol, total 111 mg/dL 100-19 9 normal Not Available [facility] ([facility]) [address] [place], [address], 04/27/2025 08:19:35 04/26/20 25 04/27/2025 LIPID PANEL triglyceride s 114 mg/dL 0-149 normal Not Available [facility] ([facility]) [address] [place], [address], 04/27/2025 08:19:35 04/26/20 25 04/27/2025 LIPID PANEL HDL cholesterol 37 mg/dL >39 below low normal Not Available [facility] ([facility]) [address] [place], [address], 04/27/2025 08:19:35 04/26/20 25 04/27/2025 LIPID PANEL VLDL cholesterol radha 21 mg/dL 5-40 Not Available [facility] ([facility]) [address] [place], [address], 04/27/2025 08:19:35 04/26/20 25 04/27/2025 LIPID PANEL LDL chol calc ([facility]) 53 mg/dL 0-99 Not Available [facility] ([facility]) [address] [place], [address], 04/27/2025 08:19:35 04/26/20 25 04/27/2025 LIPID PANEL LDL calc comment: LENDING MANAGER Not Available [facility] ([facility]) [address] [place], [address], 04/27/2025 08:19:35 04/26/20 04/27/2025 VITAM IN B12 AND FOLAT E vitamin B12 395 pg/mL 232-12 45 normal Not Available [facility] ([facility]) [address] [facility], [place], [address], 04/27/2025 08:19:36 04/26/2004/27/2025 VITAM IN B12 AND FOLAT E folate (folic acid), serum 5.6 NG/mL >3.0 normal A serum folat e jose ntrat ion of less than 3.1 ng/mL is consi dered to repre sent clini radha defic iency . Not Available [facility] ([facility]) [address] [facility], [place], [address], 04/27/2025 08:19:36 04/26/2004/26/2025 PSA TOTAL (REFL EX TO FREE) reflex criteria Commen t The perce nt free PSA is perfo rmed on a refle x basis only when the total PSA is betwe en 4.0 and 10.0 ng/mL . Not Available [facility] ([facility]) [address] [facility], [place], [address], 04/27/2025 08:19:36 04/26/2004/27/2025 PSA TOTAL (REFL EX TO FREE) prostate [...] prese nce or absen ce of delores cline se. Not Available [facility] ([facility]) [address] [facility], [place], [address], 04/27/2025 08:19:36 04/26/20 25 04/27/2025 HEMOG LOBIN A1C hemoglobin A1C 4.9 % 4.8-5. 6 normal Predi abete s: 5.7 - 6.4 Diabe kenyatta: >6.4 Glyce ranjith contr ol for adult s with diabe kenyatta: <7.0 Not Available [facility] ([facility]) [address] [facility], [place], [address], 04/27/2025 08:19:37 04/26/20 25 04/27/2025 VITAM IN [...] 1. IOM (Inst itute of Medic ine). 2009. Dieta ry refer ence intak es for calci um and D. Jose gillette [place]: The [facility] . 2. Theodora dimas MF, Sania zimmerman [place], [place] off-F errar i FARAH, et al. Evalu ation , treat ment, and preve ntion of vitam in D defic iency : an Endoc rine Socie ty clini radha pract ice guide line. JCEM. 2010; 96(7) :1911 -30. Not Available [facility] ([facility]) [address] [facility], [place], [address], 04/27/2025 08:19:38 Result Notes None recorded. Problems Name Problem SNOMED Code Status Onset Date Resolution Date Notes Provider Name and Address Organization Details Recorded Time Myocardial infarction 67146442 Active 2023 Abena Dee null, [place] - [facility] 4 14:29:01 Rheumatoid arthritis 85812234 Active 2023 Lashaun Stokes, [employer] [address], [place], [address], [place] - [facility] 4 14:46:25 History of pericarditi s 1739411411590 05 Active 2023 Lashaun Stokes [employer] [address], [place], [address], [place] [facility] 4 14:46:32 Congestive heart failure 61836404 Active 2023 Lashaun Stokes [employer] [address], [place], [address], [place] [facility] 4 14:50:30 Essential hypertensio n 42582452 Active 2023 Lashaun Stokes [employer] [address], [place], [address], [place] [facility] 4 14:50:33 Hyperlipide philomena 17616761 Active 2023 Lashaun Stokes [employer] [address], [place], [address], [place] [facility] 4 14:52:22 Anemia 423959863 Active 2023 Lashaun Stokes [employer] [address], [place], [address], [place] [facility] 4 14:45:43 Alkaline phosphatase above reference range 656817807 Active 2023 Lashaun Stokes [employer] [address], [place], [address], [place] [facility] 4 14:45:43 Hyperglycem ia 56779151 Active 2023 Lashaun Stokes [employer] [address], [place], [address], [place] [facility] 4 14:45:45 Rheumatoid factor detected 073066040 Active 2023 Lashaun Stokes APRN [address], [place], [address], [place] - [facility] 4 14:45:47 Vitamin D deficiency 28363987 Active 2023 Lashaun Stokes APRN [address], [place], [address], [place] - [facility] 4 15:03:04 Prediabetes 942836768 Active 2023 Lashaun Stokes APRN [address], [place], [address], [place] - [facility] 4 12:33:59 Heart failure with reduced ejection fraction 757109618 Active 2023 Lashaun Stokes APRN [address], [place], [address], [place] - [facility] 4 09:10:23 Iron deficiency anemia 67771072 Active 2024 Lashaun Stokes APRN [address], [place], [address], [place] - [facility] 5 15:42:24 Anxiety 66457484 Active 2024 Lashaun Stokes APRN [address], [place], [address], [place] - [facility] 5 10:15:27 Problem [...] Updated DateTime 5 177.8 cm 37.4 kg/m2 893535. 61 g 97 % 97 % 16 /min 86 /min 124/76 mm[Hg] Connie Anderson [place] - [facility] 5 09:40:04 Social History Question Answer Notes LastModified by Organizat ion Details LastModified Time Tobacco Smoking Status Former Smoker Abena Dee shanda, [place] - [facility] 05/12/2024 14:35:12 Do You [...] Do You Have A Medical Power Of General Manager Food? No Information not available 05/12/2024 What Was [...] 50 mcg/0.25mL dose 11/15/2021 completed Not Available [facility] 09:21:12 COVID-19, mRNA, LNP-S, PF, 100 mcg/0.5mL dose or 50 mcg/0.25mL dose 12/13/2021 completed Not Available [facility] 09:21:12 Past Encounters Encounter ID Performer Location Encounter Start Date Encounter Closed Date Diagnosis/Indication Diagnosis SNOMED-CT Code Diagnosis ICD10 Code Diagnosis Note [id number] Lashaun Stokes APRN [address] [place] [address] 04/26/2025 09:20:24 04/26/2025 10:41:25 General examination of patient 183923745 Z00.00 Screening for cardiovascular system disease 435626919 Z13.6 Endocrine/ metabolic screening 365800327 Z13.228 Will call with results Exercises education, guidance, and counseling 717557095 Z71.82 The patient was advised to continue a healthy diet and exercise regularly. Dietary ma nagement surveillance 799249003 Z71.3 Hyperlipid emia screening 387864295 Z13.220 Labs ordered as above Screening for malignant neoplasm of prostate 026718509 Z12.5 Congestive heart failure 85171983 I50.9 Sees Cardiology - continue with F/U appt's as scheduled - has one upcoming that is scheduled advised to discuss concerns with them as well as MRI that was ordered by them that he was unable to have done as they could not decide whether it was safe or not due to his pacemaker wire Prediabetes 344487274 R7 3.03 Will call with results; last A1C 4.7 in January 2025; Advised to check glucose at times when he is feeling hot/clammy or feeling bad and also fasting and keep log to bring to F/U visit - discussed would like to R/O glucose issues as cause of symptoms he is experienci ng. Vitamin D deficiency 347 38869 E55.9 Will call with results - continue D3 weekly for now Anxiety 62588677 F41.9 Discussed I feel a lot of his symptoms are manifested /made worse by being anxious and having anxiety from traumatic events that he has been through with open heart surgery, etc. Patient does take sertraline daily, but does not desire to try any other medication s at this time. Screening for malignant neoplasm of colon 959378572 Z12.11 Body mass index 30+ - obesity 935956052 Z68.37 Obesity 253585554 E66.9 Health Concerns Section Related Observation LastModified by Organization Detai ls LastModified Time None Recorded Concern Status LastModified by Organization Details LastModified Time None Recorded Payers Encounter Date Sequence Insurance Name Policy Number Policy Gorman Covered Member ID Gorman Member ID Guarantor Name 04/26/2025 1 [employer] [id number] Grant Fitzpatrick [id number] Grant Fitzpatrick
--- OUTSIDE RECORDS SUMMARY | 2025-06-04 14:59 | XMS_ITS | Clinical Summary ---
Author Organization [facility] Address [address] [place] [address] Care Team Providers Care Quality Technician Fiberglass Name Role Phone Lashaun Stokes MD Primary Care Provider [phone] Allergies No known active allergies Medications Entresto 24-26 MG tablet Take 1 tablet twice a day by oral route for 30 days. 4 Active FeroSul 325 (65 Fe) MG tablet TAKE ONE (1) TABLET EVERY DAY BY ORAL ROUTE FOR 30 DAYS. 4 Active pantoprazole (PROTONIX) 40 MG EC tablet 4 Active sertraline (ZOLOFT) 100 MG tablet Take 1 tablet by mouth Daily. 4 Active spironolactone (ALDACTONE) 25 MG tablet TAKE ONE HALF (1/2) TAB BY MOUTH EVERY DAY 4 Active atorvastatin (LIPITOR) 80 MG tablet Take 1 tablet by mouth Daily. 4 Active cholecalciferol (VITAMIN D3) 1.25 MG (84209 UT) capsule Take 1 capsule every week by oral route. 4 Active loratadine (CLARITIN) 10 MG tablet Take 1 tablet by mouth Daily. 4 Active nitroglycerin (NITROSTAT) 0.[address] by sublingual route as needed. 4 Active Aspirin Low Dose 81 MG EC tablet Take 1 tablet by mouth Daily. 4 Active Jardiance 10 MG tablet tablet TAKE ONE (1) TABLET EVERY DAY BY ORAL ROUTE FOR 30 DAYS. 4 Active ezetimibe (ZETIA) 10 MG tablet Take 1 tablet by mouth Daily. Active metoprolol succinate XL (TOPROL-XL) 50 MG 24 hr tablet TAKE ONE (1) TABLET BY MOUTH EACH MORNING AND AT NOON, THEN TWO (2) TABLETS EVERY NIGHT AT BEDTIME 5 Active Diclofenac Sodium (VOLTAREN) 1 % gel gelIndications: Arthralgia of multiple sites Apply 2-4 g topically to the appropriate area as directed Take As Directed. Apply 2-4 grams by topical route 3-4 times every day to the affected area(s) PRN pain 100 g 5 5 Active sulfaSALAzine (AZULFIDINE ENTABS) 500 MG EC tablet Take 3 tablets by mouth 2 (Two) Times a Day. 180 tablet 3 5 Active methylPREDNISol one (MEDROL) 4 MG dose pack Take as directed on package instructions. Taper as directed over 6 days. 1 each 5 Active Abatacept (Orencia ClickJect) 125 MG/ML solution auto-injectorIn dications:Rheum atoid arthritis involving multiple sites with positive rheumatoid factor Inject 1 mL under the skin into the appropriate area as directed 1 (One) Time Per Week. 4 each 5 5 Active Active Problems Problem Noted Date Diagnosed Date Rheumatoid factor positive 06/16/2024 Assessment & Plan (06/16/2024 2:59 PM EDT): 188.4 with normal up to 14 Repeat RF 101 (<14) with all three isotypes positive as well Consistent with rheumatoid arthritis Arthralgia of multiple sites 06/16/2024 History of coronary artery disease 06/16/2024 Assessment & Plan (06/16/2024 2:59 PM EDT): Status post CABG April 2024 [facility] Assessment & Plan (06/16/2024 2:59 PM EDT): Status post CABG April 2024 [facility] Rheumatoid arthritis involvi ng multiple sites with positive rheumatoid factor 06/16/2024 Assessment & Plan (06/16/2024 3:02 PM EDT): 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 Onset dz summer 2022 with bilateral hand wrist and shoulder pain. + Swelling pain stiffness bilateral wrists, hands chronically Flared 11/30 with pain in ankles and MTPs. Labs with PCP revealed rheumatoid factor +188.4, YOSELIN negative, normal sed rate and CRP, Uric acid normal Labs 12/07/23 revealed highly positive CCP>250 and RF >100. Prior MTX started 12/2023 Dr Thakkar (pneumonia developed 2 weeks later so he stopped) Avoid anti-TNF medication with history of heart failure EF in the 20% range Exam labs and history all compatible with new onset seropositive rheumatoid arthritis He reports prior intolerance to methotrexate December 2023 as he developed pneumonia 2 weeks after starting. He is status post CABG April 2024 at [facility] and has reported heart failure His hospital orderly would like him to get off NSAIDs, but he states he cannot function without naproxen once daily High disease activity from RA. Doing very poorly clinically from a rheumatoid standpoint -Recommend addition of sulfasalazine -Prior authorize for subcutaneous Orencia. -Will avoid anti-TNF medication with his history of heart failure with reported EF in the 20% range. -Add topical diclofenac for joints as needed -Medrol Dosepak -Handout provided on Orencia, sulfasalazine, rheumatoid arthritis -X-ray hands today -Labs ordered today as below. Screen for hepatitis and tuberculosis prior to initiation Orencia Return to clinic 2 months Hx of CABG 06/16/2024 Assessment & Plan (06/16/2024 2:59 PM EDT): April 2024 at [facility] Other fatigue 06/16/2024 Immunosuppression due to drug therapy 06/16/2024 High risk medication use 06/16/2024 Assessment & Plan (06/16/2024 2:59 PM EDT): Sulfasalazine, Orencia I discussed the side effects of sulfasalazine, including but not limited to rash, GI upset, photosensitivity, renal stones, hematologic and liver abnormalities We discussed biologic agents at length. Risks and alternative were discussed at length and the option of no treatment was also given. We discussed risks including but not limited to infections which can be unusual, severe, and deadly. When possible, these agents should be stopped immediately if infections occur. Unusual infection such as TB and fungal infections can occur. There may be an increased risk of lymphoma with these agents. Other risks can include are multiple sclerosis like illness and worsening of the failure. Infusion or injection reactions whish can be delay have been reported. Reactivation of daily brain virus hepatitis viruses have been reported. Worsening of COPD has been seen with Orencia. Elevated lipids, elevations in liver functions, and dangerous changes in blood counts have been seen with certain agents. Regular monitoring will be required. NSAID long-term use 06/16/2024 Assessment & Plan (06/16/2024 2:59 PM EDT): Risks of NSAIDs discussed including GI upset, GI bleeding, renal or hepatic risks and the risk of cardiovascular disease and stroke. Warned patient not to take other NSAIDs including [id number] NSAIDs Encounters Date Type Department Care Team Description 03/14/2025 Telephone [facility] [address] [place] [phone] Edita Krueger, PharmD 03/07/2025 Telephone [facility] [address] [address] Robin Marshall MD 03/05/2025 Telephone [facility] [address] [place] [phone] Robin Marshall MD Orencia PA from Last 3 Months Family History Medical History Relation Name Comments heart stent Father Rheumatic fever Mother Relation Name Status Comments Father Mother Social History Tobacco Use Types Packs/Day Years Used Date Smoking Tobacco: Former Cigarettes Passive Smoke Exposure: Past Smokeless Tobacco: Never Tobacco Cessation:Counseling Given: Not Answered Alcohol Use Standard Drinks/Week Comments Not Currently 0 (1 standard drink = 0.6 oz pur e alcohol) Abuse Screen Answer Date Recorded Unsafe at Home or Work/School Not on file Feels Threatened by Someone? Not on file 07/2023 Does Anyone Keep You from Co ntacting Others or Doint Things Outside the Home? Not on file 08/16/2023 Physical Sign of Abuse Present Not on file 1 Housing Stability Answer Date Recorded Current Living Arrangements Not on file 07/2023 Potentially Unsafe Housing Conditions Not on christophe e 08/16/2023 Family and Community Support Answer Librado e Recorded Help with Day-to-Day Activities Not on file 08/16/2023 Lonely or Isolated Not on file 08/16/2023 Employment Answer Date Recorded Do you want help finding or keeping work or a raquel b? Not on file 08/16/2023 Disabilities Answer Date Recorded Concentrating, Remembering, or Making Decisions Difficulty Not on file 08/16/2023 Doing Errands Independently Difficulty Not on fi le 08/16/2023 Education Answer Date Recorded Help with school or training? Not on file Preferred Language Not on file 08/16/2023 Sex and Gender Information Value Date Recorded Sex Assigned at Not on file Legal Sex Male 10:38 PM EDT Gender Identity Not on file Sexual Orientation Not on file Last Filed Vital Signs Vital Sign Reading Time Taken Comments Blood Pressure 118/82 01/11/2025 8:24 AM EST Pulse 87 01/11/2025 8:24 AM EST Temperature 36.4 C (97.6 F) 01/11/2025 8:24 AM EST Respiratory Rate - - Oxygen Saturation - - Inhaled Oxygen Concentration - - Weight 117 kg (259 lb) 01/11/2025 8:24 AM EST Height 182.9 cm (6') 01/11/2025 8:24 AM EST Body Mass Index 35.13 01/11/2025 8:24 AM EST Plan of Treatment Upcoming Encounters Date Type Department Care Team (Late st Contact Info) Description 06/06/2025 8:30 AM EDT Office Visit [facility] [address] [phone] Robin Marshall MD [address] [address] Health Maintenance Due Date Last Done Comments Pneumococcal Vaccine 50+ (1 of 2 - PCV) 1988 TDAP/TD VACCINES (1 - Tdap) 1988 ZOSTER VACCINE (1 of 2) 1988 COLOGUARD 2014 COLON CANCER SCREENING 5 YEA R SIGMOIDOSCOPY 2014 COLONOSCOPY 2014 COLORECTAL CANCER SCREENING 2014 CT COLONOGRAPHY 2014 FECAL OCCULT BLOOD TEST 2014 FIT Testing (1 year) 2014 COVID-19 Vaccine (3 - Moderna risk series) 01/10/2022 12/13/2021, 11/15/2021 ANNUAL PHYSICAL 06/13/2024 INFLUENZA VACCINE 08/08/2025 HEPATITIS C SCREENING Completed 06/16/2024 Procedures Procedure Name Priority Date/Time Associated Diagnosis Comments HEPATITIS PANEL, ACUTE Routine 06/16/2024 1:11 PM EDT Arthralgia of multiple sites Rheumatoid factor positive Other fatigue from Last 3 Months or Most Recently Relevant to Health Maintenance Results * Hepatitis Panel, Acute (06/16/2024 1:11 PM EDT) Hepatitis B Surface Ag Non-Reacti ve Non-Reacti ve 06/17/2024 12:05 AM EDT [facility] Hep A IgM Non-Reacti ve Non-Reacti ve 06/17/2024 12:05 AM EDT [facility] Hep B C IgM Non-Reacti ve Non-Reacti ve 06/17/2024 12:05 AM EDT [facility] Hepatitis C Ab Non-Reacti ve Non-Reacti ve 06/17/2024 12:05 AM EDT [facility] Blood Venipuncture / Unknown 06/16/2024 1:11 PM EDT 06/16/2024 1:11 PM EDT Narrative [facility] - 06/17/2024 12:05 AM EDT Results may be falsely decreased if patient taking Biotin. us Robin Marshall MD LAB BLOOD ORDERABLES Final Result [facility]
[address] [place] [address], from Last 3 Months or Most Recently Relevant to Health Maintenance Insurance [facility] PPO Care Teams Quality Technician Fiberglass Relationship Specialty Start Date End Date Lashaun Stokes MD [address] [place] [address] MAUREEN Betancourt [address] PCP - General Nurse Practitioner 06/07/24
--- OUTSIDE RECORDS SUMMARY | 2025-06-04 14:59 | XMS_ITS | Encounter Summary ---
Author Organization [employer] ([place], [place], [place], [place]) Address [address] [place] [address] Care Team Providers Care Start Up Specialist Name Role Phone Narciso Holly MD Unavailable Donal Hurtado MD Unavailable [phone] Justin Fountain MD Unavailable [phone] Reason for Visit * Reason Comments Medication Refill Encounter Details Date Type Department Care Team (Late st Contact Info) Description 04/08/2024 Refill [facility] Cardiothoracic Surgery - [address] [facility] [address] [place] [address] Enrique Marcano PA-C [address] [facility] [address] [place] [address] Social History Tobacco Use Types Packs/Day Years Used Date Smoking Tobacco: Never Smokeless Tobacco: Never Alcohol Use Standard Drinks/Week Comments Never 0 (1 standard drink = 0.6 oz pur e alcohol) Utilities Answer Date Recorded In the past 12 months, has t he electric, gas, oil, or water company threatened to [...] Do you speak a language other than Colombian at [facility]? No 01/31/2024 Do you want [...] on file documented as of this encounter Plan of Treatment Not on file documented as of this encounter Visit Diagnoses Not on filedocumented in this encounter Care Teams Start Up Specialist Relationship Specialty Start Date End Date Narciso Holly MD [address] [place] [address], [address] [place] [address] Interventional Cardiology 02/03/24 [place] [address] [place] [address] [address] [place] [id number] Surgeon Cardiothoracic Surgery 02/03/24 Justin Fountain MD [address] [place] [address] [place] [address] Referring Physician Cardiology 04/19/24 documented as of this encounter
--- OUTSIDE RECORDS SUMMARY | 2025-06-04 14:59 | XMS_ITS | Encounter Summary ---
Author Organization [facility] Address [address] [place] [address] Care Team Providers Care Calculator Operator Name Role Phone Lashaun Stokes MD Primary Care Provider Encounter Details Date Type Department Care Team (Late st Contact Info) Description 01/15/2025 Results Follow-Up [facility] [address] [phone] Emma Hernandez MA Social History Tobacco Use Types Packs/Day Years Used Date Smoking Tobacco: Former Cigarettes Passive Smoke Exposure: Past Smokeless Tobacco: Never Alcohol Use Standard Drinks/Week Comments Not Currently [...] as of this encounter Plan of Treatment Upcoming Encounters Date Type Department Care Team (Late st Contact Info) Description 06/06/2025 8:30 AM EDT Office Visit [facility] [address] [phone] Robin Marshall MD [address] [address] documented as of this encounter Visit Diagnoses Not on filedocumented in this encounter Care Teams Calculator Operator Relationship Specialty Start Date End Date Lashaun Stokes MD [address] [place] [address] [place] [address] PCP - General Nurse Practitioner 06/07/24 documented as of this encounter
--- NOTE | 2025-06-04 15:15 | CA_ITS ---
APPROVED REPORT EXAM: Comprehensive 2D, Doppler, and color-flow Echocardiogram Technical Writing Lead/Mgr: Celi Whipple RDCS Ht: 6 ft 0 in Wt: 263lbs BSA: 2.39 BP: 129/91 mmHg Indications: HFRef definity given M-Mode Dimensions RVDd 2.67 cm (0.9-2.6) LA Diam 4.00 cm (1.9-4.0) LVDd 5.80 cm (3.5-5.7) LVDs 4.62 cm (3.5-5.7) IVSd 1.02 cm (0.6-1.1) PWd 0.93 cm (0.6-1.1) EF (Teich) 41.00% FS 20.30% EDV (Teich) 166.60 mL TAPSE 1.35 (<1.7) ESV (Teich) 98.30 mL LV Diastology E Decel Time 163 (160-240 msec) E/A Ratio 0.8 Mitral Valve MV E Max Matt. 57.0 (40-130 cm/s) MV A Velocity 68.0 (40-130 cm/s) E/A Ratio 0.84 MV PHT 48.0 ms Left Ventricle The left ventricle is moderately dilated. 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 The left ventricular systolic function is moderately reduced. There is increased LV wall thickness. There is moderate global hypokinesis. There is severe hypokinesis of the anterior and anteroseptal LV andrews. The LV apex is akinetic. Grade 1 diastolic dysfunction is present. No left ventricle thrombus noted on this study. LVEF is 30-35%. Right Ventricle The right ventricle is normal size. Right ventricle is mildly hypokinetic. Atria Left atrium is mildly dilated. Right atrium is mildly dilated. There is no Doppler evidence of interatrial shunt. Aortic Valve The aortic valve is mildly thickened. Trace aortic regurgitation. There is no aortic valvular stenosis. Mitral Valve The mitral valve is normal in structure. No evidence of mitral valve stenosis. Trace mitral regurgitation. Tricuspid Valve Tricuspid valve is grossly normal in structure and function. Trace tricuspid regurgitation. There is insufficient TR jet to estimate RVSP. Pulmonic Valve The pulmonary valve is normal in structure. Trace pulmonic regurgitation. Great Vessels The aortic root is normal in size. IVC is normal in size and collapses >50% with inspiration. Pericardium There is no pericardial effusion. Other Information Study Quality: Fair Conclusion Moderate LV dilation with moderate reduction in LV systolic function (LVEF 30-35%). Small apical aneurysm is present. Severe hypokinesis of the anterior and anteroseptal LV andrews. The LV apex is akinetic. Normal RV size and function. Mild biatrial dilation. No significant valvular stenosis or regurgitation. Electronically signed by : Corinna Thakkar MD 06/04/2025 19:29:23
[2025-06-04] MEDS: DEFINITY US ECHO CONTRAST 2ML INJ 2 MG IV (15:47)
== END 2025-06-04 23:59 | disposition home or self-care (01) ==
LOC: RT 14:57
PROVIDERS: PCP Nurse Practitioner Family; Visit Provider Physician Assistant
DX: I25.3 Aneurysm of heart (principal); I11.0 Hypertensive heart disease with heart failure; I50.84 End stage heart failure; I50.20 Unspecified systolic (congestive) heart failure; E78.5 Hyperlipidemia, unspecified; I21.9 Acute myocardial infarction, unspecified; I30.8 Other forms of acute pericarditis; R93.1 Abnormal findings on diagnostic imaging of heart and coronary circulation; R94.31 Abnormal electrocardiogram [ECG] [EKG]; Z95.1 Presence of aortocoronary bypass graft; Z87.891 Personal history of nicotine dependence
CPT/HCPCS: 93306; Q9957